=== PATIENT | female | born 1975 ===

== ENCOUNTER → 2020-05-08 11:03 | Outpatient (BNVA) | payer MEDICARE, MEDICAID, SELFPAY | PROVIDERS: PCP Internal Medicine; Visit Provider Physician Assistant ==

== ENCOUNTER → 2020-05-13 08:04 | Outpatient (BNVA) | payer MEDICARE, MEDICAID, SELFPAY | PROVIDERS: PCP Internal Medicine; Visit Provider Surgery | DX: E66.01 Morbid (severe) obesity due to excess calories (principal); I10 Essential (primary) hypertension; K21.9 Gastro-esophageal reflux disease without esophagitis | CPT/HCPCS: Q3014 ==

== ENCOUNTER 2020-05-15 09:27 | Outpatient (REF) | payer MEDICARE, MEDICAID, SELFPAY ==
--- NOTE | 2020-05-15 10:08 | ECG_ITS ---
Test Reason : MORBID OBESITY Blood Pressure : / mmHG Vent. Rate : 089 BPM Atrial Rate : 089 BPM P-R Int : 190 ms QRS Dur : 084 ms QT Int : 364 ms P-R-T Axes : 038 009 047 degrees QTc Int : 442 ms Normal sinus rhythm Minimal voltage criteria for LVH Borderline ECG No previous ECGs available Referred By: Zi Fountain Electronically Signed By:Cruzito Martin
[2020-05-15 10:18] LABS: MANUAL DIFF FLAG NO
--- NOTE | 2020-05-15 10:21 | XR_ITS ---
EXAMINATION: XR CHEST CLINICAL INFORMATION: E66.01. Bariatric service evaluation. COMPARISON: None TECHNIQUE: 2 views of the chest were obtained. FINDINGS: The lungs are clear. The vascularity is normal. There is no airspace consolidation or effusion. The heart is normal in size. The hilar and mediastinal contours are normal. There is mild dextrocurvature midthoracic spine. XR/XR chest 2V IMPRESSION: Unremarkable examination.
[2020-05-15 10:23] LABS: Basophils Absolute Auto 0.1 X10*3/uL (0.0-0.2); Basophils Percent Auto 0.5 % (0-2); Eosinophils Absolute Auto 0.4 X10*3/uL (0.0-0.4); Eosinophils Percent Auto 3.3 % (0-4); Hematocrit 40.3 % (37-47); Hemoglobin 13.3 g/dl (12.0-16.0); Imm Gran Abs Auto 0.06 X10*3/uL (0.00-0.03); Imm Gran Pct Auto 0.5 % (0.0-0.4); Lymphocytes Absolute Auto 3.5 X10*3/uL (1.2-4.9); Lymphocytes Percent Auto 31.7 % (20-40); Mean Corpuscular Hemoglobin 29.3 pg (27.0-33.0); Mean Corpuscular Volume 88.8 fL (80-98); Mean Platelet Volume 10.2 fL (9.4-12.3); Monocytes Absolute Auto 0.7 X10*3/uL (0.1-1.2); Monocytes Percent Auto 6.6 % (2-11); NRBC Pct Auto 0.4 /100WBC (0.0-0.2); Neutrophils Absolute Auto 6.4 X10*3/uL (2.0-8.3); Neutrophils Percent Auto 57.4 % (45-73); Platelet Count 215 X10*3/uL (160-400); Red Blood Count 4.54 X10*6/uL (4.20-5.50); Red Cell Distribution Width 14.3 % (11.0-16.0); White Blood Count 11.1 X10*3/uL (4.8-10.8)
[2020-05-15 10:34] LABS: Estimated Average Glucose 114 mg/dL; Hemoglobin A1c % 5.6 %
[2020-05-15 10:49] LABS: Alanine Aminotransferase 29 U/L (0-31); Albumin Level 4.1 g/dL (3.5-5.0); Alkaline Phosphatase 119 U/L (39-117); Anion Gap 13 (12-20); Aspartate Amino Transferase 26 U/L (5-31); Bilirubin Total 1.2 mg/dL (0.0-1.0); Blood Urea Nitrogen 12 mg/dL (9-16); C Reactive Protein 0.59 mg/dL (< or = 0.50); Calcium 9.1 mg/dL (8.4-10.2); Carbon Dioxide 28 mmol/L (22-29); Chloride 102 mmol/L (96-108); Cholesterol 191 mg/dL; Estimated Glomerular Filt Rate > 60; Glucose Random 112 mg/dL (60-115); HDL Cholesterol 50 mg/dL; LDL Cholesterol Calculated 109 mg/dl; Potassium 4.1 mmol/l (3.3-5.1); Sodium 139 mmol/L (135-145); Total Protein 7.4 g/dL (6.5-8.0); Triglycerides 163 mg/dL
[2020-05-15 11:11] LABS: Ferritin 11 ng/mL (10-250); TSH reflex Free T4 1.78 mIU/mL (0.32-4.0); Vitamin D 25-OH Total 18.5 ng/mL (>30)
[2020-05-15 11:40] LABS: Folate 7.7 ng/mL (> or = 4.0); Vitamin B12 292 pg/mL (200-900)
[2020-05-16 10:27] LABS: Insulin Level Total 43.9 uIU/mL
[2020-05-16 16:22] LABS: Calcium (PTHI) 9.2 mg/dL (8.6-10.2); PTHI 61 pg/mL (14-64)
[2020-05-18 03:58] LABS: Zinc 63 mcg/dL (60-130)
[2020-05-20 12:56] LABS: Vitamin B1 6 nmol/L (8-30)
[2020-05-22 14:17] LABS: Vitamin A 36 mcg/dL (38-98)
== END 2020-05-15 09:28 | disposition home or self-care (01) ==
LOC: HO.LAB 09:27
PROVIDERS: PCP Internal Medicine; Visit Provider Surgery
DX: E66.01 Morbid (severe) obesity due to excess calories (principal); I10 Essential (primary) hypertension; K21.9 Gastro-esophageal reflux disease without esophagitis
CPT/HCPCS: 36415; 71046; 80053; 80061; 82306; 82607; 82728; 82746; 83036; 83525; 83970; 84425; 84443; 84590; 84630; 85025; 86140; 93005

== ENCOUNTER 2020-05-23 08:44 | Outpatient (REF) | payer MEDICARE, MEDICAID, SELFPAY ==
--- NOTE | 2020-05-23 08:48 | FL_ITS ---
EXAMINATION: XR GI SERIES CLINICAL INFORMATION: Morbid obesity due to excess calories COMPARISON: None TECHNIQUE: Fluoroscopic assessment of the upper GI tract was performed in various upright and supine/prone obliquities utilizing thin and thick high density barium contrast material and effervescent granules. FINDINGS: Normal oral bolus control and transfer. Normal posterior tilt of the epiglottis with elevation of the hyoid. Mild degenerative changes of the cervical spine with small osteophytes noted. The esophagus was normal in course, caliber, and contour. There was normal distensibility with no fixed segment of narrowing. No focal mucosal abnormality was identified. No significant esophageal dysmotility was observed. Contrast passed freely across the gastroesophageal junction into the stomach. No significant hiatal hernia. There was normal distensibility of the stomach with no focal abnormality identified. There was prompt gastric emptying into the duodenum which demonstrated a normal appearance. Mild gastroesophageal reflux was observed. FLUOROSCOPY TIME: 2 minutes DOSE AREA PRODUCT: 36.207 Gy-cm2 (coyle-centimeter squared) FL/FL upper GI series IMPRESSION: Mild gastroesophageal reflux. Otherwise unremarkable upper GI examination.
--- NOTE | 2020-05-23 08:48 | US_ITS ---
EXAMINATION: US COMPLETE ABDOMEN WITH LIVER ELASTOGRAPHY CLINICAL INFORMATION: Morbid obesity due to excess calories COMPARISON: None. TECHNIQUE: Real-time imaging of the abdominal viscera. Noninvasive ultrasound liver fibrosis assessment is performed using Paty ElastPQ point quantification shear wave elastography (pSWE) with a 5 MHz transducer. Multiple elastography samples are obtained. FINDINGS: PANCREAS: The visualized pancreatic head and body are normal in appearance. The remainder of the pancreas is obscured from visualization by the overlying bowel gas. ABDOMINAL AORTA: The proximal, middle, and distal aortic segments are normal in caliber. INFERIOR VENA CAVA: Visualized portions are normal. LIVER: The liver demonstrates normal size and Contour with increased echogenicity. No focal lesion or intrahepatic biliary duct dilatation. The right lobe measures 16.9 cm in length. The left lobe measures 9.2 cm in length. The portal vein is patent. Shear wave elastography provides a median stiffness of 1.54 m/s (reference: normal median stiffness is 0.81 - 1.22 m/s). The IQR/median stiffness to assess sampling precision is 0.21 (reference: optimal IQR/median stiffness is under 0.3). GALLBLADDER: Cholecystectomy. COMMON BILE DUCT: Normal in caliber measuring 0.6 cm in diameter. RIGHT KIDNEY: Normal. No hydronephrosis. No renal calculi or focal parenchymal lesions. The kidney measures 13.6 cm in maximum dimension. LEFT KIDNEY: Normal. No hydronephrosis. No renal calculi or focal parenchymal lesions. The kidney measures 10.1 cm in maximum dimension. SPLEEN: Normal. The spleen measures 9.9 cm in maximum dimension. FREE FLUID: None. US/US abdomen comp w elastography IMPRESSION: 1. Hepatic steatosis. 2. Elastography: Liver elastography measurements are consistent with a moderate risk for clinically significant liver fibrosis (METAVIR Stage F2-F3).
== END 2020-05-23 08:45 | disposition home or self-care (01) ==
LOC: HO.US 08:44
PROVIDERS: PCP Internal Medicine; Visit Provider Surgery
DX: Z01.818 Encounter for other preprocedural examination (principal); E66.01 Morbid (severe) obesity due to excess calories; K21.9 Gastro-esophageal reflux disease without esophagitis; I10 Essential (primary) hypertension
CPT/HCPCS: 74240; 76705; 76981

== ENCOUNTER → 2020-05-24 14:41 | Outpatient (REF) | payer MEDICARE, MEDICAID, SELFPAY ==
--- NOTE | 2020-05-24 14:45 | CA_ITS ---
Transthoracic Echocardiogram Patient (Last, First, Middle): Conchita Chaney, Gender: Female Date of : 1975 Age: 44 Procedure Date: 05/24/2020 Procedure Type: Transthoracic Echocardiogram Location: OP Height: 162.56 cm Weight: 118.84 kg BSA: 2.19 m2 Heart Rate: bpm BP: 134 / 80 mmHg Opticianry Teacher: Referring MD: Zi Fountain MD Symptoms: I10 HTN, SON/MCDERMOTT, PREOP WEIGHTLOSS Study Quality: Fair ECG Rhythm: Sinus Conclusions: - The left ventricular systolic function is normal. The visually estimated ejection fraction is between 60-65%. - No obvious valvular pathology seen on this study. Findings Left Ventricle Normal left ventricular cavity size. There is mildly increased left ventricular wall thickness. The left ventricular systolic function is normal. The visually estimated ejection fraction is between 60-65%. There is no evidence of regional wall motion abnormalities. Diastolic function is normal for age. Right Ventricle Normal right ventricular cavity size and systolic function. Atria Both atria are normal in size. Aortic Valve There is a normal trileaflet aortic valve. There is mild calcification of the aortic valve. There is no aortic valve stenosis. There is no aortic valve regurgitation. Mitral Valve The mitral valve appears normal. There is no mitral valve regurgitation. There is no mitral valve stenosis. Pulmonic Valve The pulmonic valve was not well visualized. Tricuspid Valve Normal tricuspid valve structure. There is no tricuspid valve regurgitation. The pulmonary artery systolic pressure is normal. Great Vessels The aortic annulus, sinuses of valsalva, and asc aorta are normal in size. Venous The inferior vena cava is normal in size and collapses greater than 50% with inspiration. Pericardium/Pleural There is no evidence of pericardial effusion. Prior Study Comparison No prior study available for comparison. Recommendations, Care & Conclusions No obvious valvular pathology seen on this study. Measurements 2D Linear Measurements IVSd: 1.24 0.6-0.9/0.6-1.0 cm LVIDd: 4.00 3.9-5.3/4.2-5.9 cm LVIDd Index: 1.83 2.4-3.2/2.2-3.1 cm/m2 LVIDs: 2.73 2.0-3.6 cm LVPWd: 1.28 0.7-1.1 cm Ao Root: 2.90 2.1-3.5 cm LA Diam: 3.90 2.7-3.8/3.0-4.0 cm LAIDs Index: 1.78 1.5-2.3 cm/m2 LV Mass: 221.69 67-162/88-224 g LV Mass Index: 101.23 43-95/49-115 g/m2 LVOT Diam: 2.30 3.0+(-)1.3 cm 2D Systolic Function EF 4C: 57.70 >55% EF 2C: 64.60 >55% EF BiP: 61.50 >55% Mitral Valve MV Pk E: 0.80 MV PK A: 0.82 MV Decel Time: 148.00 E/A: 1.00 E'Lateral: 13.70 E'Medial: 8.90 E/E' Med: 9.00 E/E' Lat: 5.80 PHT: 43.00 MVA PHT: 5.12 Decel [place]: 5.41 Aortic Valve AoV Pk Prudencio: 1.61 AoV Mn Prudencio: 1.19 AoV VTI: 0.35 AoV Pk Grad: 10.00 Aov Mn Grad: 6.00 LUIS ENRIQUE Cont.VTI: 2.34 LVOT LVOT Pk Prudencio: 0.93 LVOT Mn Prudencio: 0.61 LVOT VTI: 0.20 LVOT Pk Grad: 3.00 LVOT Mn Grad: 2.00 LVOT Diam: 2.30 LVOT Area: 4.15 Diastolic Function MV Pk E: 0.80 MV Pk A: 0.82 E/A: 1.00 E'Medial: 8.90 E/E' Med: 9.00 E' Laterial: 13.70 E/E' Lat: 5.80 Tricuspid Valve TR Pk Prudencio: 1.61 TR Pk Grad: 10.00 RA Press: 3.00 RVSP: 13.00 Great Vessels Aorta Ao Root-2D: 2.90 2.0-3.7 cm Ao Asc: 2.90 2.1-3.4 cm Pulmonary Valve PV Pk Prudencio: 1.22 Peak PV Grad: 6.00 Updated in Other Vendor System with Status of Final Domingo Moeller MD electronically signed on 05/25/2020 3:26:35 PM with status of Final
== END ==
LOC: HO.CARD 14:41
PROVIDERS: Visit Provider Surgery
DX: Z01.818 Encounter for other preprocedural examination (principal); R06.02 Shortness of breath; I10 Essential (primary) hypertension
CPT/HCPCS: 93306

== ENCOUNTER → 2020-05-27 08:07 | Outpatient (REF) | payer MEDICARE, MEDICAID, SELFPAY ==
--- NOTE | 2020-05-27 08:09 | CA_ITS ---
Acquisition Time: 2020-05-27 08:30:41 Total Exercise Time: 00:07:24 Test Indications: Abnormal ECG Medications: AMLODIPINE VIT D OMEPRAZOLE Protocol: MOIRA Max HR: 171 BPM 97% of Pred: 175 BPM Max BP: 150/080 mmHG Max Work Load: 9.3 METS Exercise stress test using Moira protocol, total of 7 min 24 sec. METS 9.3. TAPHR up to 97 %. Pt tolerated well, denies any anginal sx. EKG with no arrhythmias, no ischemic changes seen during exercise or in recovery period. Normotensive response to exercise. Test reviewed with Dr. Moeller Referred By: Zi Fountain Overread By: Raul Jonas
== END ==
LOC: HO.CARD 08:07
PROVIDERS: Visit Provider Surgery
DX: Z01.818 Encounter for other preprocedural examination (principal); R06.02 Shortness of breath; I10 Essential (primary) hypertension; R94.31 Abnormal electrocardiogram [ECG] [EKG]
CPT/HCPCS: 93017

== ENCOUNTER 2020-05-28 08:06 | Outpatient (REF) | payer MEDICARE, MEDICAID, SELFPAY ==
[2020-05-30 12:03] LABS: H Pylori Breath Test NOT DETECTED (NOT DETECTED)
== END 2020-05-28 08:07 | disposition home or self-care (01) ==
LOC: HO.LNP 08:06
PROVIDERS: PCP Internal Medicine; Visit Provider Physician Assistant
DX: Z11.0 Encounter for screening for intestinal infectious diseases (principal)
CPT/HCPCS: 83013; 99211

== ENCOUNTER → 2020-06-10 11:40 | Outpatient (BNVA) | payer MEDICARE, MEDICAID, SELFPAY | PROVIDERS: PCP Internal Medicine; Visit Provider Surgery | DX: E66.01 Morbid (severe) obesity due to excess calories (principal) | CPT/HCPCS: 99212; Q3014 ==

== ENCOUNTER → 2020-06-12 08:18 | Outpatient (BNVA) | payer MEDICARE, MEDICAID, SELFPAY | PROVIDERS: PCP Internal Medicine; Visit Provider Dietitian, Registered ==

== ENCOUNTER → 2020-07-01 08:41 | Outpatient (BNVA) | payer MEDICARE, MEDICAID, SELFPAY | PROVIDERS: PCP Internal Medicine; Visit Provider Surgery | DX: E66.01 Morbid (severe) obesity due to excess calories (principal); Z68.41 Body mass index [BMI] 40.0-44.9, adult; Z71.3 Dietary counseling and surveillance | CPT/HCPCS: Q3014 ==

== ENCOUNTER → 2020-07-03 09:56 | Outpatient (BNVA) | payer MEDICARE, MEDICAID, SELFPAY | PROVIDERS: PCP Internal Medicine; Visit Provider Physician Assistant ==

== ENCOUNTER 2020-07-26 09:13 | Outpatient (REF) | payer MEDICARE, MEDICAID, SELFPAY ==
[2020-07-26 09:43] LABS: Carbon Monoxide 1.7
[2020-08-02 22:28] LABS: Cotinine, U 11 ng/mL; Nicotine, U <2 ng/mL
== END 2020-07-26 09:14 | disposition home or self-care (01) ==
LOC: HO.LAB 09:13
PROVIDERS: PCP Internal Medicine; Visit Provider Surgery
DX: F17.200 Nicotine dependence, unspecified, uncomplicated (principal)
CPT/HCPCS: 80323

== ENCOUNTER → 2020-08-12 08:12 | Outpatient (BNVA) | payer MEDICARE, MEDICAID, SELFPAY | PROVIDERS: PCP Internal Medicine; Visit Provider Surgery | DX: K21.9 Gastro-esophageal reflux disease without esophagitis (principal); I10 Essential (primary) hypertension; E66.01 Morbid (severe) obesity due to excess calories; Z68.38 Body mass index [BMI] 38.0-38.9, adult; Z71.3 Dietary counseling and surveillance | CPT/HCPCS: Q3014 ==

== ENCOUNTER → 2020-08-16 12:58 | Outpatient (BNVA) | payer MEDICARE, MEDICAID, SELFPAY | PROVIDERS: PCP Internal Medicine; Visit Provider Physician Assistant ==

== ENCOUNTER 2020-08-20 06:09 | Inpatient (IN) | payer MEDICARE, MEDICAID, SELFPAY ==
[2020-08-13 10:17] VITALS: BMI 38.2
[2020-08-15 10:29] LABS: MANUAL DIFF FLAG NO
[2020-08-15 10:39] LABS: INTERNATIONAL NORM RATIO 1.1 (0.9-1.1); Prothrombin Time 13.1 SEC (10.8-13.0)
[2020-08-15 10:41] LABS: Basophils Percent Auto 0.4 % (0-2); Eosinophils Absolute Auto 0.3 X10*3/uL (0.0-0.4); Eosinophils Percent Auto 3.1 % (0-4); Hematocrit 37.5 % (37-47); Hemoglobin 12.2 g/dl (12.0-16.0); Imm Gran Abs Auto 0.04 X10*3/uL (0.00-0.03); Imm Gran Pct Auto 0.5 % (0.0-0.4); Lymphocytes Percent Auto 36.6 % (20-40); Mean Corpuscular HGB Conc 32.5 g/dl (31.0-35.0); Mean Corpuscular Hemoglobin 28.9 pg (27.0-33.0); Mean Corpuscular Volume 88.9 fL (80-98); Mean Platelet Volume 12.1 fL (9.4-12.3); Monocytes Absolute Auto 0.7 X10*3/uL (0.1-1.2); Monocytes Percent Auto 9.1 % (2-11); NRBC Pct Auto 0.2 /100WBC (0.0-0.2); Neutrophils Absolute Auto 4.1 X10*3/uL (2.0-8.3); Neutrophils Percent Auto 50.3 % (45-73); Platelet Count 177 X10*3/uL (160-400); Red Blood Count 4.22 X10*6/uL (4.20-5.50); Red Cell Distribution Width 14.7 % (11.0-16.0); White Blood Count 8.2 X10*3/uL (4.8-10.8)
[2020-08-15 10:42] LABS: Partial Thromboplastin Time 28.1 SEC (24.1-38.0)
[2020-08-15 10:55] LABS: Alanine Aminotransferase 42 U/L (0-31); Albumin Level 4.1 g/dL (3.5-5.0); Alkaline Phosphatase 88 U/L (39-117); Anion Gap 15 (12-20); Aspartate Amino Transferase 31 U/L (5-31); Bilirubin Total 1.3 mg/dL (0.0-1.0); Blood Urea Nitrogen 10 mg/dL (9-16); C Reactive Protein 0.35 mg/dL (< or = 0.50); Calcium 9.1 mg/dL (8.4-10.2); Carbon Dioxide 24 mmol/L (22-29); Chloride 104 mmol/L (96-108); Cholesterol 148 mg/dL; Creatinine Clr Calc Pharmacy 108.1; Estimated Glomerular Filt Rate > 60; Glucose Random 87 mg/dL (60-115); HDL Cholesterol 38 mg/dL; LDL Cholesterol Calculated 92 mg/dl; Potassium 3.9 mmol/L (3.3-5.1); Sodium 139 mmol/L (135-145); Triglycerides 92 mg/dL
[2020-08-15 11:17] LABS: TSH reflex Free T4 0.74 uIU/mL (0.32-4.0)
[2020-08-15 11:34] LABS: Estimated Average Glucose 97 mg/dL
[2020-08-16 10:17] LABS: Insulin Level Total 9.7 uIU/mL
--- NOTE | 2020-08-19 09:36 | HO.ANESPROP2 ---
Documented by User: Kelle Zuñiga 08/19/20 09:40 HPI - Anesthesia Eval Consult details Narrative: 44yo F for Gastrectomy Sleeve PMFSH Active Problems Active Problems: All Active Problems (Updated 08/13/20 @ 10:08 by Maria E Avelar) Abnormal EKG (Acute) Vitamin B1 deficiency (Acute) Vitamin D deficiency (Acute) Vitamin B12 deficiency (Acute) Vitamin A deficiency (Acute) Depressive disorder due to separate medical condition (Acute) Multiple sclerosis (Acute) GERD (gastroesophageal reflux disease) (Acute) Hypertension (Acute) Morbid obesity (Acute) Past Medical History Medical History COVID-19 vaccine series completed GERD (gastroesophageal reflux disease) Hypertension Morbid obesity Multiple sclerosis Numbness Pain Smoking Family History Family History Mother No problems noted. Father No problems noted. Sister No problems noted. Son No problems noted. Daughter No problems noted. Surgical History Surgical History Hx of section Hx of cholecystectomy Social History Social History Are you a primary anesthesiologist and critical care to a significant other at home: Yes (children) Do you presently have visiting nurse or other home services: No Alcohol intake: current Alcohol intake frequency: a few times a month Smoking Status: Former smoker Cigarettes Per Day: 0 (quit 07/23/2020) Years Smoked: 30 Smoked in Last 30 Days: Yes Smoking Quit Date: 07/23/2020 Use of substances other than those prescribed or required for medical reasons: No Have you been hit, kicked, punched, or otherwise hurt by someone within the past year? If so, by whom?: No Are you DNR?: No Advance Directives: No Advance Directives Information Provided: No Advance Directives on File: No Patient : No FDLMP: 08/11/2020 : No Poor oral hygiene: No Meds Allergies Allergy/AdvReac Type Severity Reaction Status Date / Time No Known Allergies Allergy Verified 08/20/20 06:27 Home Medications Medication Instructions Recorded Confirmed Last Taken Type amlodipine 5 mg tablet 5 mg PO DAILY 05/13/20 08/13/20 Unknown History natalizumab 300 mg/15 mL 300 mg IV Q6W 05/13/20 08/13/20 Unknown History intravenous solution omeprazole 20 mg tablet,delayed 20 mg PO DAILY 05/13/20 08/20/20 Unknown History release vitamin A 2,400 mcg capsule 16,000 unit PO DAILY cap 05/30/20 08/20/20 Unknown History venlafaxine 1 cap PO BEDTIME 08/13/20 08/13/20 Unknown History cholecalciferol (vitamin D3) 1 cap PO DAILY 08/20/20 08/20/20 Unknown History ondansetron HCl [Zofran] 4 mg PO Q12H PRN 08/20/20 08/20/20 Unknown History Exam Exam Date and Time: August 19, 2020 0936 Height,Weight and Vital Signs: Height 5 ft 4 in Weight 101.151 kg Pertinent Lab Results Pertinent Lab Results: Laboratory Tests 08/15/20 08/15/20 08/15/20 09:55 09:55 09:55 WBC 8.2 RBC 4.22 Hgb 12.2 Hct 37.5 MCV 88.9 MCH 28.9 MCHC 32.5 RDW 14.7 Plt Count 177 MPV 12.1 Immature Gran % (Auto) 0.5 H Neut % (Auto) 50.3 Lymph % (Auto) 36.6 Pratt % (Auto) 9.1 Eos % (Auto) 3.1 Baso % (Auto) 0.4 Lymph # (Auto) 3.0 Pratt # (Auto) 0.7 Eos # (Auto) 0.3 Baso # (Auto) 0.0 Abs Immat Gran (auto) 0.04 H Absolute Neuts (auto) 4.1 Absolute Nucleated RBC 0.020 H Nucleated RBC % (auto) 0.2 PT 13.1 H INR 1.1 APTT 28.1 Sodium 139 Potassium 3.9 Chloride 104 Carbon Dioxide 24 Anion Gap 15 BUN 10 Creatinine 0.76 Estim Creat Clear Calc 108.1 Estimated GFR > 60 Random Glucose 87 Estimat Average Glucose Hemoglobin A1c % Total Insulin Calcium 9.1 Total Bilirubin 1.3 H AST 31 ALT 42 H Alkaline Phosphatase 88 D C-Reactive Protein 0.35 Total Protein 7.0 Albumin 4.1 Triglycerides 92 Cholesterol 148 D LDL Cholesterol, Calc 92 HDL Cholesterol 38 D TSH 0.74 Blood Type Antibody Screen Antibody Identification 08/15/20 08/15/20 08/15/20 09:55 09:55 09:55 WBC RBC Hgb Hct MCV MCH MCHC RDW Plt Count MPV Immature Gran % (Auto) Neut % (Auto) Lymph % (Auto) Pratt % (Auto) Eos % (Auto) Baso % (Auto) Lymph # (Auto) Pratt # (Auto) Eos # (Auto) Baso # (Auto) Abs Immat Gran (auto) Absolute Neuts (auto) Absolute Nucleated RBC Nucleated RBC % (auto) PT INR APTT Sodium Potassium Chloride Carbon Dioxide Anion Gap BUN Creatinine Estim Creat Clear Calc Estimated GFR Random Glucose Estimat Average Glucose 97 Hemoglobin A1c % 5.0 Total Insulin 9.7 Calcium Total Bilirubin AST ALT Alkaline Phosphatase C-Reactive Protein Total Protein Albumin Triglycerides Cholesterol LDL Cholesterol, Calc HDL Cholesterol TSH Blood Type A Positive Antibody Screen POSITIVE Antibody Identification Anti-M Narrative Narrative: EKG 04/2020 Vent. Rate : 089 BPM Atrial Rate : 089 BPM P-R Int : 190 ms QRS Dur : 084 ms QT Int : 364 ms P-R-T Axes : 038 009 047 degrees QTc Int : 442 ms Normal sinus rhythm Minimal voltage criteria for LVH Borderline ECG No previous ECGs available ECHO 05/2020 Conclusions: - The left ventricular systolic function is normal. The visually estimated ejection fraction is between 60-65%. - No obvious valvular pathology seen on this study. Exercise Stress 05/2020 Exercise stress test using Sonny protocol, total of 7 min 24 sec. METS 9.3. TAPHR up to 97 %. Pt tolerated well, denies any anginal sx. EKG with no arrhythmias, no ischemic changes seen during exercise or in recovery period. Normotensive response to exercise. Test reviewed with Dr. Moeller Assessment and Plan Assessment Anesthesia Assessment: Chart Reviewed Documented by User: Mikael Stallworth 08/20/20 07:23 REPLACED BY [facility] Past Medical History Medical History COVID-19 vaccine series completed GERD (gastroesophageal reflux disease) Hypertension Morbid obesity Multiple sclerosis Numbness Pain Smoking Family History Family History Mother No problems noted. Father No problems noted. Sister No problems noted. Son No problems noted. Daughter No problems noted. Surgical History Surgical History Hx of section Hx of cholecystectomy Social History Social History Are you a primary anesthesiologist and critical care to a significant other at home: Yes (children) Do you presently have visiting nurse or other home services: No Alcohol intake: current Alcohol intake frequency: a few times a month Smoking Status: Former smoker Cigarettes Per Day: 0 (quit 07/23/2020) Years Smoked: 30 Smoked in Last 30 Days: Yes Smoking Quit Date: 07/23/2020 Use of substances other than those prescribed or required for medical reasons: No Have you been hit, kicked, punched, or otherwise hurt by someone within the past year? If so, by whom?: No Are you DNR?: No Advance Directives: No Advance Directives Information Provided: No Advance Directives on File: No Patient : No FDLMP: 08/11/2020 : No Poor oral hygiene: No Meds Allergies Allergy/AdvReac Type Severity Reaction Status Date / Time No Known Allergies Allergy Verified 08/20/20 06:27 Home Medications Medication Instructions Recorded Confirmed Last Taken Type amlodipine 5 mg tablet 5 mg PO DAILY 05/13/20 08/13/20 Unknown History natalizumab 300 mg/15 mL 300 mg IV Q6W 05/13/20 08/13/20 Unknown History intravenous solution omeprazole 20 mg tablet,delayed 20 mg PO DAILY 05/13/20 08/20/20 Unknown History release vitamin A 2,400 mcg capsule 16,000 unit PO DAILY cap 05/30/20 08/20/20 Unknown History venlafaxine 1 cap PO BEDTIME 08/13/20 08/13/20 Unknown History cholecalciferol (vitamin D3) 1 cap PO DAILY 08/20/20 08/20/20 Unknown History ondansetron HCl [Zofran] 4 mg PO Q12H PRN 08/20/20 08/20/20 Unknown History Exam Airway Mallampati Class: III TM Dist: >3cm Neck ROM: Full Loose/Missing/Broken Teeth: No Heart: rrr+[id number] Lungs: cta b/l Assessment and Plan Assessment Anesthesia Assessment: Anesthesia Plan Discussed, PAT Visit and Chart Reviewed Final Anesthetic Review NPO: Yes ASA Class: II Final Preanesthetic Review: No Changes in Pt Med Stat, Meds/Allgs Chart Reviewed, Consent Obtained/Reviewed and Anes Risks/Benef Reviewed Patient Risk: Low Procedure Risk: Low Assessment/Block/Sedation in SS: Assess/Block/Sedation-SS Anesthetic Plan Anesthetic Plan: GA and Agree w/ Assess. and Plan Disposition: Standard PACU
--- NOTE | 2020-08-19 17:43 | MHC.SHP ---
Pre-Procedural Eval Section A The patient is an INPATIENT: Yes The History & Physical has been completed within 30 days and I have reviewed it.: No Section B Chief Complaint: obesity Details of Present Illness: obesity Relevant Family History (Specify if Yes): No Relevant Social History: None Present Medications: see Short Stay Collaborative assessment Medical History: No relevant PMH History of Previous Operations: No relevant previous surgery Allergies: Allergies Allergy/AdvReac Type Severity Reaction Status Date / Time No Known Allergies Allergy Verified 08/13/20 10:11 Review of Systems Sugical H&P ROS: Negative: Constitution, Cardiovascular, Respiratory, Neurological, Psychiatric, Hem-Onc, Allergic/Immunologic, Gastrointestinal, Genitourinary, Musculoskeletal, Integumentary, Endocrine and Eyes/Ears/Nose/Throat Exam Surgical H&P Exam: Normal: HEENT, Normal: Heart, Normal: Lungs, Normal: Extremities, Normal: Abdomen, Normal: Skin and Normal: Neurological Plan Diagnosis/Plan: Unchanged I have reviewed the history and physical and performed a pertinent physical examination on my patient. No changes have occurred unless specified.
[2020-08-20] VITALS (20 sets, daily range): BP systolic 121–181; BP diastolic 64–99; PULSE 70–92; RESP 14–20; TEMP 36.2–36.9; O2SAT 96–100
[2020-08-20 06:31] LABS: UPreg QC Valid YES; Urine Pregnancy NEGATIVE (NEGATIVE)
[2020-08-20 07:00] LABS: COVID-19 Test Negative (Negative)
[2020-08-20] MEDS: Lactated Ringers 1,000 ML 999 ML IV (07:11)
[2020-08-20] MEDS: Lactated Ringers 1,000 ML 100 ML IVCONT (07:12)
--- NOTE | 2020-08-20 10:40 | P.DS_ITS ---
DS: Providers Provider Date of Service: 08/21/20 Date of admission: 08/20/20 06:09 Primary care physician: Yun River MD DS: Medications Discharge Medications Home Medications: Home Medications Medication Instructions Recorded Confirmed amlodipine 5 mg tablet 5 mg PO DAILY 05/13/20 08/13/20 natalizumab 300 mg/15 mL 300 mg IV Q6W 05/13/20 08/13/20 intravenous solution omeprazole 20 mg tablet,delayed 20 mg PO DAILY 05/13/20 08/20/20 release vitamin A 2,400 mcg capsule 16,000 unit PO DAILY cap 05/30/20 08/20/20 venlafaxine 1 cap PO BEDTIME 08/13/20 08/13/20 cholecalciferol (vitamin D3) 1 cap PO DAILY 08/20/20 08/20/20 ondansetron HCl [Zofran] 4 mg PO Q12H PRN 08/20/20 08/20/20 Previous Rx's Medication Instructions Recorded mecobalamin (vitamin B12) 1,000 1,000 mcg SUBLINGUAL DAILY #30 tab 05/20/20 mcg disintegrating tablet,sublingual thiamine HCl (vitamin B1) 100 mg 100 mg PO DAILY #30 tab 05/20/20 tablet pantoprazole 40 mg tablet,delayed 40 mg PO DAILY #30 tab 08/12/20 release sucralfate 100 mg/mL oral 10 ml PO BID #400 ml 08/12/20 suspension DS: Summary Time Spent with Patient Time attestation: ADMITTING DIAGNOSIS: morbid obesity, HTN, GERD, MS, paraesophageal hernia DISCHARGE DIAGNOSIS: same, s/p laparoscopic sleeve gastrectomy and repair diaphragmatic hernia PAST SURGICAL HISTORY: section, lap cholecystectomy PROCEDURE: upper endoscopy, laparoscopic sleeve gastrectomy and repair of diaphragmatic hernia hernia DISCHARGE SUMMARY: History of Present Illness: The patient is a 44 year-old woman with a BMI of 44.7 kg/m2 and associated co- morbidities as described above. The patient had extensive work-up,lost 39.3 lbs preoperatively and was electively scheduled for laparoscopic, possible open sleeve gastrectomy and gastropexy. Risks and complications of the surgery were discussed with the patient in advance, particularly the possibility of , pulmonary embolism, anastomotic leak, bleeding, bowel injury, GERD, cardiac, renal or pulmonary complications. The patient understood all the risks and was in agreement with the surgical plan. Hospital Course: The patient underwent an uneventful laparoscopic sleeve gastrectomy with gastropexy and repair of diaphragmatic hernia on the day of admission. Postoperatively, the patient was transferred to the surgical floor. The patient was on IV Acetaminophen and IV dilaudid for pain control. Patient was started on bariatric phase 1 diet POD #0. On postoperative day one, the patient was feeling well without nausea, vomiting, fevers, or tachycardia. The patient had some mild incisional pain. The abdomen was soft. On the morning of postoperative day one, the patient was continued on 1 ounce of water or ice every half hour. During the first day, the patient did fairly well, having some incisional pain, but able to ambulate adequately and to tolerate liquids well. Since the patient is doing well, we decided that the patient was ready to be discharged. The patient was given instructions to follow-up with me next week and to call my office for any fever over 101, persistent abdominal pain, nausea, vomiting, GERD, symptoms of DVT such as calf tenderness, or leg swelling, or pulmonary embolism such as chest pain or shortness of breath. The patient was also instructed to drink 40-60 ounces of liquids per day using the 1-ounce cups. The patient was given prescription for Tylenol for pain, Zofran prn for nausea, and pantoprazole and carafate. The patient was encouraged to ambulate and use the incentive spirometer. The patient was allowed to shower, but no baths, and encouraged to stay active at home. All of these instructions were given to the patient personally. All questions were answered and the patient understood all instructions, the instructions were also given to the patient in print. Total time spent providing and/or coordinating discharge services: Discharge coordination time: Less than 30 minutes Physical Exam Vital Signs: Vital Signs: Last Vital Signs Temp 98.1 F 08/20/20 06:16 Pulse 92 08/20/20 06:16 Resp 18 08/20/20 06:16 BP 142/67 H 08/20/20 06:16 Pulse Ox 97 08/20/20 06:16 Body Mass Index 38.2 DS: Data Data Completed and Pending Pending studies at discharge: Pending at discharge 08/20/20 09:10 Surgical [PTH] Routine Labs on day of discharge: Laboratory Results - last 24 hr 04/08/20/20 08/20/20 09:55 06:00 06:03 Urine Test NEGATIVE COVID-19 (RAMILA) Negative COVID-19 Clin Com See Note Blood Type A Positive Antibody Screen POSITIVE Antibody Identification Anti-M Crossmatch (AHG) See Detail Discharge Plan Discharge Anticipated Discharge Date/Time: 08/21/20 11:36 Patient Disposition: Home, Self-Care Discharge Diagnosis: s/p sleeve gastrectomy Referrals: Yun River MD [Primary Care Provider] - 1 Week Discharge Medications: Continued venlafaxine 150 mg capsule,extended release 24hr 1 cap PO BEDTIME RF: 0 ondansetron HCl [Zofran] 4 mg tablet 4 mg PO Q12H PRN (Reason: Nausea And Vomiting) RF: 0 amlodipine 5 mg tablet 5 mg PO DAILY RF: 0 Tysabri 300 mg/15 mL solution 300 mg IV Q6W RF: 0 pantoprazole 40 mg tablet,delayed release (DR/EC) 40 mg PO DAILY Qty: 30 RF: 2 sucralfate 100 mg/mL suspension 10 ml PO BID Qty: 400 RF: 2 Discontinued thiamine HCl (vitamin B1) 100 mg tablet 100 mg PO DAILY Qty: 30 RF: 2 mecobalamin (vitamin B12) 1,000 mcg tablet,disintegrating 1,000 mcg sublingual DAILY Qty: 30 RF: 2 vitamin A 8,000 unit capsule 16,000 unit PO DAILY RF: 0 cholecalciferol (vitamin D3) 125 mcg (5,000 unit) capsule 1 cap PO DAILY RF: 0 omeprazole 20 mg tablet,delayed release (DR/EC) 20 mg PO DAILY RF: 0 Discharge Orders: Discharge Order (Routine); Ordered 08/21/20 Ordered By: Zi Fountain Diet: other Activity on Discharge: No heavy lifting Stand Alone Forms: Patient Portal Discharge page Activity Restrictions/Additional Instructions: No tub baths, sex or returning to work until discussed at first post op appointment. No exercise, alcohol, tobacco or illegal drug use. Continue to use incentive spirometer hourly while awake. Walk in home for 5- 10 minutes every 2 hours during the first week. Continue phase 1 diet today and start phase 2 diet tomorrow morning. Follow all instructions in the bariatric handbook and call with any questions. Care Plan Goals: weight loss Health Concerns: morbid obesity Plan of Treatment: see discharge instructions Assessment: POD # 1 s/p sleeve gastrectomy, stable.
--- NOTE | 2020-08-20 10:40 | PM.OP ---
Brief Operative Note Date of Service: 08/20/20 Pre-op diagnosis: Morbid obesity with comorbidities (see below) Post-op diagnosis: same (& diaphragmatic hernia) Procedure: INITIAL PATIENT BMI ON PRESENTATION AT OUR OFFICE: 44.8 kg/m2 LAST BMI BEFORE SURGERY: 38.4 kg/m2 COMORBIDITIES: Hypertension, GERD, multiple sclerosis, liver fibrosis, liver steatosis The patient participated in an intensive weekly lifestyle intervention and exercise program during which the patient has lost between the initial office visit and the last preoperative visit 39.3 lbs, or 14.84% of initial actual body weight. The patient met the BMI-criteria for bariatric surgery based on the BMI on initial presentation. The patient should not be penalized for achieving such weight loss because it is not sustainable long-term without surgical intervention and it was achieved in preparation for bariatric surgery under my direction and based on my published research ([email or web address] and [email or web address]) that a 10% preoperative weight loss improves long-term weight loss after surgery and reduces perioperative complications. Insurance carriers such as [facility] have endorsed my recommendations and have included in their policies criteria to include a 10% preoperative weight loss requirement. PROCEDURE: Esophago-gastroscopy, laparoscopic repair of incarcerated diaphragmatic hernia, laparoscopic lysis of adhesions, laparoscopic sleeve gastrectomy and laparoscopic gastropexy INDICATIONS: This is a 44 year-old female who was electively scheduled for laparoscopic, possibly open sleeve gastrectomy. The risks and complications of the procedure were discussed with the patient in advance, particularly the possibility of ; pulmonary embolism; staple line leak; bleeding; GERD; cardiac, pulmonary, or renal complications; as well as long-term problems such as insufficient weight loss, vitamin deficiency, strictures, or ulcers. The patient understood all the risks, and was in agreement to proceed with surgery. DESCRIPTION OF PROCEDURE: After informed consent was obtained from the patient, the patient was given preoperative antibiotics, and was transferred to the operating room. After successful induction of general anesthesia, pneumatic compressive devices were placed on both lower extremities. An upper endoscopy was performed next. The oropharynx and esophagus appeared to be within normal limits. There was a diaphragmatic hernia present of moderate size consistent with the findings of the preoperative upper GI. The stomach was entered. Then after all fluid and air were suctioned and the stomach was fully decompressed, the scope was withdrawn and secured in the mid esophagus. The patient was then prepped and draped in the usual sterile manner, and abdominal access was established at the right upper quadrant with the Eleno technique. A 12 mm blunt port was inserted, and the abdomen was insufflated with CO2 to a pressure of 15 mmHg. Under direct visualization, additional ports were placed, specifically two 5 mm Versi-step ports to the left upper quadrant, and a 5 mm Versi-Step port to the right upper quadrant. 1% lidocained plan was used to infiltrate all port sites as well as all fascia defects. Following that, the patient was placed in a steep reverse Trendelenburg position. An additional 5 mm port was placed to the right flank for the Mediflex retractor that was used to retract the left lobe of the liver. The gastro-esophageal fat pad was opened with the ultrasonic device (Thunderbeat, Olympus) and the anterior esophagus and hiatus were exposed. The angle of His was opened with the ultrasonic device the fundus of the stomach from any diaphragmatic and splenic attachments. I then opened the gastrocolic ligament between the transverse colon and the greater curvature of the stomach with the ultrasonic device to enter the lesser sac and facilitate the ligation of the short gastric vessels. I started at a mid-point along the greater curvature and using the Thunderbeat, all short gastric vessels were divided all the way to the angle of His until the left gume was completely dissected at its entirety. I then divided the gastro-colic ligament distally to a distance of about 3-4 cm proximal to the esophagus. There were extensive congenital adhesions between the pancreas and posterior gastric wall. Those were lysed completely with the ultrasonic device. Adhesiolysis took approximately 45 min to complete. There was an obvious significant-sized hiatal hernia. I continued dissecting along the hiatus toward the left gume and the angle of His. I fully mobilized the fat pad that was incarcerated in the hernia. I then continued by dissecting even further into the posterior retro-esophageal space all the way to the angle of His. I continued to mobilize the esophagus into the mediastinum circumferentially. Both vagal nerves were seen and preserved. The right gume was also dissected free completely. At that point, I was able to have at least 3 to 5 cm of esophagus into the abdomen. After I completely mobilized the esophagus from both the left and right gume and I had a good mobilization of the esophagus circumferentially, I closed the hernia defect with four interrupted #0 Surgidac sutures using the Endo Stitch device, three of which were placed posterior and one anterior to the esophagus. The stomach was then divided transversely with one Endo LANG-45 purple load and five LANG-60 articulating orange loads using the AEON stapler and loads. Every effort was made that the gastric sleeve had a tubular shape and an even caliber throughout. Once the sleeve resection was completed, the staple line of the gastric sleeve was reinforced with Hemoclips. The resected stomach was retrieved without difficulty from the Eleno port. A gastropexy was then performed in order to prevent postoperative GERD and partial gastric volvulus. Several interrupted 2.0 Surgidac sutures were placed between the sleeve's staple line and the previously divided greater omentum and gastro-colic ligament using the Endo-Stitch device. An upper endoscopy was performed. There was no narrowing at the GE junction. The scope was easily advanced all the way to the pylorus which was clearly visualized. There was no narrowing anywhere and the sleeve's caliber was even throughout. The sleeve's staple line was inspected and there was no evidence of ischemia, bleeding or dehiscence. At that point the gastroscope was withdrawn from the patient?s mouth while we were decompressing the bowel and the stomach from any remaining air. I looked into the lesser sac to see how the sleeve was situating and it was situating well. There was no bleeding from the staple line, spleen, or short gastric vessels. The Mediflex retractor was removed, and the undersurface of the liver was inspected and there was no bleeding. The patient was placed in supine position. I closed the fascial defect of the 12 mm port site with a figure of eight #1 Polysorb suture. Then 100 cc 0.25 % Marcaine plain with 10 mg of Dexamethasone were used to infiltrate the fascial closure as well as all skin incisions. At this point, the abdomen was deflated, all ports were removed under direct vision, and no bleeding was noted from any of the port sites. The skin incisions were irrigated with saline and were closed with 4-0 absorbable monofilament sutures. Steri-Strips and OpSites were used to cover all incisions. The patient was extubated and was transferred in stable condition to the recovery room for further care. I was present and performed all vieira parts of the procedure. Jazmine Barreto was the assistant project engineer. There were no residents to assist with this case. Osvaldo Fountain MD, PhD, FACS Surgeon: Zi Fountain MD Anesthesia: GETA, local and other (TAP block) Was an Rat Breeder used for this Procedure?: Yes Rat Breeder: Marva Barreto Estimated blood loss (mL): 10 IV fluids (mL): 2,500 Urine output (mL): 0 (No Gomez to record) Pathology: other (Stomach) Condition: stable Disposition: PACU
[2020-08-20] MEDS: Famotidine/PF 20 MG/2 ML VIAL IVPUSH ×2 (10:44→21:14)
--- NOTE | 2020-08-20 10:47 | PM.PNGS ---
Subjective Subjective Date of Service: 08/21/20 Interval history: Patient has mild incisonal pain but was able to ambulate and use the incentive spirometer. Is tolerating phase 1 bariatric diet. Physical Exam Vital Signs: Vital Signs: Last Vital Signs Temp 98.1 F 08/20/20 06:16 Pulse 92 08/20/20 06:16 Resp 18 08/20/20 06:16 BP 142/67 H 08/20/20 06:16 Pulse Ox 97 08/20/20 06:16 Body Mass Index 38.2 GI: Inspection: Yes normal to inspection and Yes incision (clear, dry and intact) Extrem: Right lower extremity: normal to inspection (no calf tenderness) Left lower extremity: normal to inspection (no calf tenderness) Progress Note: A&P Assessment and plan (1) Morbid obesity: Status: Acute (2) Hypertension: Status: Acute (3) GERD (gastroesophageal reflux disease): Status: Acute (4) Multiple sclerosis: Problem details: Diagnosed ~1999 sees, Dr Rebeca Loza [facility] Neurology Status: Acute (5) Depressive disorder due to separate medical condition: Status: Acute (6) S/P laparoscopic sleeve gastrectomy: Status: Acute Assessment and Plan: 44 year old Female was admitted 08/20/2020 with morbid obesity and comorbidities. Problem 1: s/p laparoscopic sleeve gastrectomy, repair of incarcerated diaphragmatic hernia, gastropexy and lysis of adhesions Status: Doing well Plan: Check am labs, If OK, will begin phase 1 bariatric diet. (7) S/P repair of paraesophageal hernia: Status: Acute (8) Paraesophageal hernia: Status: Acute (9) Liver fibrosis: Status: Acute (10) Steatosis, liver: Status: Acute Fall Risk Details Current Medications: Current Medications Generic Name Dose Route Start Last Admin Trade Name Freq PRN Reason Stop Dose Admin Famotidine 20 mg 08/20/20 10:45 08/20/20 10:44 Famotidine/Pf 20 Mg/2 Ml Vial IVPUSH 20 mg BID TRAN Administration Fentanyl 50 mcg 08/20/20 07:19 Fentanyl Citrate/Pf 100 Mcg/2 Ml Vial IVPUSH Q5M PRN Pain, Moderate (Pain Scale 4-6 Hydromorphone HCl 0.5 mg 08/20/20 07:19 Hydromorphone Hcl 0.5 Mg/0.5 Ml Syringe IVPUSH Q5M PRN Pain, Severe (Pain Scale 7-10) Lactated Ringer's 1,000 mls @ 100 mls/hr 08/20/20 06:00 08/20/20 07:12 Lr IVCONT 100 mls/hr .Q10H TRAN Administration Promethazine HCl 12.5 mg/ 50.5 mls @ 202 mls/hr 08/20/20 07:19 Sodium Chloride IV ONCE PRN Nausea and Vomiting Ondansetron HCl 4 mg 08/20/20 07:19 Ondansetron Hcl 4 Mg/2 Ml Vial IVPUSH ONCE PRN Nausea and Vomiting Oxycodone HCl 10 mg 08/20/20 07:19 Oxycodone Hcl Immed Release 5 Mg Tablet PO ONCE PRN Pain, Mild (Pain Scale 1-3) Time Spent With Patient Time: Total time spent is greater than 50% in coordination of care (as documented) at patient's floor/unit and/or counseling patient: Time with patient: less than 15 minutes
[2020-08-20 11:25] LABS: Hematocrit 39.3 % (37-47); Hemoglobin 12.6 g/dl (12.0-16.0)
[2020-08-20 11:30] LABS: Carbon Monoxide POC 0.3 %
[2020-08-20] MEDS: HYDROmorphone HCl 0.5 MG/0.5 ML SYRINGE IVPUSH ×2 (11:37→11:51)
[2020-08-20 12:03] LABS: Anion Gap 18 (12-20); Blood Urea Nitrogen 7 mg/dL (9-16); Calcium 8.9 mg/dL (8.4-10.2); Carbon Dioxide 20 mmol/L (22-29); Chloride 104 mmol/L (96-108); Creatinine Clr Calc Pharmacy 109.6; Estimated Glomerular Filt Rate > 60; Glucose Random 145 mg/dL (60-115); Potassium 3.9 mmol/L (3.3-5.1); Sodium 138 mmol/L (135-145)
[2020-08-20 13:02] LABS: Carbon Monoxide Refer to POC result
[2020-08-20] MEDS: Lactated Ringers 1,000 ML 125 ML IVCONT ×2 (13:11→21:14)
[2020-08-20] MEDS: ceFAZolin Sodium/Dextrose,Iso 2 GM/50 ML PIGGYBACK IV (13:24)
[2020-08-20] MEDS: amLODIPine Besylate 5 MG TABLET PO (13:24)
[2020-08-20] MEDS: ondansetron HCL 4 MG/2 ML VIAL IVPUSH ×2 (15:23→23:25)
[2020-08-20] MEDS: hydrALAZINE HCl 20 MG/ML VIAL 10 MG IVPUSH (17:02)
[2020-08-20] MEDS: Metoclopramide HCl 10 MG/2 ML VIAL IVPUSH (19:46)
[2020-08-20] MEDS: Venlafaxine HCl ER 150 MG CAP.ER.24H PO (21:14)
[2020-08-20] MEDS: 0.9 % Sodium Chloride Flush 3 ML SYRINGE IVFLUSH (21:14)
[2020-08-21 03:41] VITALS: BP 148/73; PULSE 72; RESP 20; TEMP 36.4; O2SAT 98
[2020-08-21 04:56] LABS: Basophils Percent Auto 0.1 % (0-2); Eosinophils Percent Auto 0.2 % (0-4); Hematocrit 38.5 % (37-47); Hemoglobin 12.6 g/dl (12.0-16.0); Imm Gran Abs Auto 0.07 X10*3/uL (0.00-0.03); Imm Gran Pct Auto 0.4 % (0.0-0.4); Lymphocytes Absolute Auto 3.2 X10*3/uL (1.2-4.9); Lymphocytes Percent Auto 18.6 % (20-40); MANUAL DIFF FLAG SCAN; Mean Corpuscular HGB Conc 32.7 g/dl (31.0-35.0); Mean Corpuscular Hemoglobin 28.8 pg (27.0-33.0); Mean Corpuscular Volume 88.1 fL (80-98); Mean Platelet Volume 11.2 fL (9.4-12.3); Monocytes Absolute Auto 1.8 X10*3/uL (0.1-1.2); Monocytes Percent Auto 10.4 % (2-11); Neutrophils Percent Auto 70.3 % (45-73); Platelet Count 226 X10*3/uL (160-400); Red Blood Count 4.37 X10*6/uL (4.20-5.50); Red Cell Distribution Width 14.7 % (11.0-16.0); SCAN SMEAR FLAG 1
[2020-08-21] MEDS: Lactated Ringers 1,000 ML 125 ML IVCONT (05:01)
[2020-08-21 05:19] LABS: SLIDE REVIEW VERIFIED
[2020-08-21 05:24] LABS: Anion Gap 17 (12-20); Blood Urea Nitrogen 4 mg/dL (9-16); Carbon Dioxide 22 mmol/L (22-29); Chloride 102 mmol/L (96-108); Estimated Glomerular Filt Rate > 60; Glucose Random 88 mg/dL (60-115); Potassium 3.9 mmol/L (3.3-5.1); Sodium 137 mmol/L (135-145)
[2020-08-21 07:25] VITALS: BP 169/76; PULSE 61; RESP 18; TEMP 36.5; O2SAT 97
[2020-08-21] MEDS: ondansetron HCL 4 MG/2 ML VIAL IVPUSH (07:46)
[2020-08-21] MEDS: Famotidine/PF 20 MG/2 ML VIAL IVPUSH (07:46)
[2020-08-21] MEDS: amLODIPine Besylate 5 MG TABLET PO (07:47)
--- NOTE | 2020-08-21 09:40 | MHC.CM.PN ---
NURSE WRITER TECHNICAL PUBLICATIONS NOTE ELECTRONIC MEDICAL RECORD REVIEWED ALONG WITH CASE DISCUSSED WITH STAFF NURSE MET WITH PATIENT SHE REPORTED TO ME SHE LIVES WITH HER 25 YEAR OLD DAUGHTER AND 16 YEAR OLD SON. SHE DOES NOT WORK SHE HAS A DISABILITY SHE HAS MULTIPLE SCLEROSIS, SINCE THE AGE OF 24YRS, SHE HAS NOT VNA OR HAIR CUTTER SERVICES IN THE HOME, SHE DOES HAVE A CANE , WALKER AND WHEELCHAIR WHEN NEEDED OR FOR LONG DISTANCES , SHE IS INDEPENDENT IN ALL ADLS AND MOBILITY WITH A DEVICE DISCHARGE PLAN HOME WITH NO SERVICES , S/P BARIATRIC SURGERY TRANSPORTATION FAMILY PCP ISAÍAS MOY INSTRUCTED TO CALL FOR POST HOSPITLA DISCHARGE FOLLOW UP BARIATRIC SURGEON FOLLOW UP PER DISCHARGE INSTRUCTIONS MEDICARE IM EXPLAINED AND GIVEN TO PATIENT
--- NOTE | 2020-08-21 10:01 | HO.POSTANES ---
Post Anesthesia Evaluation Post Anesthesia Evaluation Vital Signs: Vital Signs Temp Pulse Resp BP Pulse Ox 08/21/20 07:25 97.7 F 61 18 169/76 H 97 08/21/20 03:41 97.6 F 72 20 148/73 H 98 08/20/20 23:08 97.2 F 70 20 121/64 97 Anesthesia: General Endotracheal-GETA Mental Status: Awake Pain Control: Satisfactory Nausea/Vomiting: None Hydration: Adequate Anesthesia-Related Issues: No Anes. Related Issues
== END 2020-08-21 09:27 | disposition home or self-care (01) | DRG 620 ==
LOC: HO.SSSA 10:40 → HO.S3 10:46
PROVIDERS: Nurse Practitioner; Physician Assistant; Admitting Provider Surgery; PCP Internal Medicine; Visit Provider Surgery
PROC: 0DB64Z3 Excision of Stomach, Percutaneous Endoscopic Approach, Vertical (ICD-10-PCS; CPT 43845; principal; 2020-08-20 07:30)
DX: E66.01 Morbid (severe) obesity due to excess calories (principal); K44.0 Diaphragmatic hernia with obstruction, without gangrene; G35 Multiple sclerosis; I10 Essential (primary) hypertension; K76.0 Fatty (change of) liver, not elsewhere classified; K66.0 Peritoneal adhesions (postprocedural) (postinfection); Z20.822 Contact with and (suspected) exposure to COVID-19; Z68.38 Body mass index [BMI] 38.0-38.9, adult; K74.00 Hepatic fibrosis, unspecified; Z87.891 Personal history of nicotine dependence; Z79.899 Other long term (current) drug therapy
CPT/HCPCS: 36415; 80048; 80053; 80061; 81025; 83036; 83525; 84443; 85014; 85018; 85025; 85610; 85730; 86140; 86850; 86870; 86885; 86900; 86901; 86920; 86922; 87635; 88307; 88342; 99024; A4649; J0131; J0690; J1100; J1170; J2250; J2405; J2550; J2765; J3010

== ENCOUNTER → 2020-08-26 08:58 | Outpatient (BNVA) | payer MEDICARE, MEDICAID, SELFPAY | PROVIDERS: PCP Internal Medicine; Visit Provider Surgery | DX: E66.9 Obesity, unspecified (principal); Z68.35 Body mass index [BMI] 35.0-35.9, adult; Z71.3 Dietary counseling and surveillance | CPT/HCPCS: 99212 ==

== ENCOUNTER → 2020-09-27 08:09 | Outpatient (BNVA) | payer MEDICARE, MEDICAID, SELFPAY | PROVIDERS: PCP Internal Medicine; Visit Provider Surgery | DX: E66.9 Obesity, unspecified (principal); Z68.34 Body mass index [BMI] 34.0-34.9, adult; Z71.3 Dietary counseling and surveillance | CPT/HCPCS: 99212 ==

== ENCOUNTER → 2020-11-13 06:57 | Outpatient (BNVA) | payer MEDICARE, MEDICAID, SELFPAY | PROVIDERS: PCP Internal Medicine; Visit Provider Surgery | DX: E66.9 Obesity, unspecified (principal); Z68.33 Body mass index [BMI] 33.0-33.9, adult | CPT/HCPCS: 99212 ==

== ENCOUNTER → 2020-12-25 07:07 | Outpatient (BNVA) | payer MEDICARE, MEDICAID, SELFPAY | PROVIDERS: PCP Internal Medicine; Visit Provider Surgery | CPT/HCPCS: Q3014 ==

== ENCOUNTER → 2021-01-24 07:59 | Outpatient (BNVA) | payer MEDICARE, MEDICAID, SELFPAY | PROVIDERS: PCP Internal Medicine; Visit Provider Surgery | DX: E66.3 Overweight (principal); Z68.29 Body mass index [BMI] 29.0-29.9, adult | CPT/HCPCS: Q3014 ==

== ENCOUNTER → 2021-03-21 08:16 | Outpatient (BNVA) | payer MEDICARE, MEDICAID, SELFPAY | PROVIDERS: PCP Internal Medicine; Visit Provider Physician Assistant Surgical | CPT/HCPCS: Q3014 ==

== ENCOUNTER 2021-03-25 08:03 | Outpatient (REF) | payer MEDICARE, MEDICAID, SELFPAY ==
[2021-03-25 08:24] LABS: MANUAL DIFF FLAG NO
[2021-03-25 08:34] LABS: Basophils Absolute Auto 0.1 X10*3/uL (0.0-0.2); Basophils Percent Auto 0.7 % (0-2); Eosinophils Absolute Auto 0.4 X10*3/uL (0.0-0.4); Eosinophils Percent Auto 4.5 % (0-4); Hematocrit 39.5 % (37.0-47.0); Imm Gran Abs Auto 0.02 X10*3/uL (0.00-0.03); Imm Gran Pct Auto 0.2 % (0.0-0.4); Lymphocytes Absolute Auto 3.8 X10*3/uL (1.2-4.9); Lymphocytes Percent Auto 43.8 % (20-40); Mean Corpuscular HGB Conc 32.9 g/dl (31.0-35.0); Mean Corpuscular Hemoglobin 29.7 pg (27.0-33.0); Mean Corpuscular Volume 90.2 fL (80.0-98.0); Mean Platelet Volume 10.9 fL (9.4-12.3); Monocytes Absolute Auto 0.6 X10*3/uL (0.1-1.2); Monocytes Percent Auto 7.3 % (2-11); Neutrophils Absolute Auto 3.8 x10*3/uL (2.0-8.3); Neutrophils Percent Auto 43.5 % (45-73); Platelet Count 180 X10*3/uL (160-400); Red Blood Count 4.38 X10*6/uL (4.20-5.50); Red Cell Distribution Width 15.4 % (11.0-16.0); White Blood Count 8.7 X10*3/uL (4.8-10.8)
[2021-03-25 08:44] LABS: Estimated Average Glucose 100 mg/dL; Hemoglobin A1c % 5.1 %
[2021-03-25 08:58] LABS: Anion Gap 13 (12-20); Blood Urea Nitrogen 13 mg/dL (9-16); Calcium 9.4 mg/dL (8.4-10.2); Carbon Dioxide 25 mmol/L (22-29); Chloride 108 mmol/L (96-108); Cholesterol 180 mg/dL; Estimated Glomerular Filt Rate > 60; Glucose Random 92 mg/dL (60-115); HDL Cholesterol 54 mg/dL; Iron 102 mcg/dL (30-160); LDL Cholesterol Calculated 113 mg/dl; Percent Iron Saturation 23 % (15-50); Sodium 142 mmol/L (135-145); Total Iron Binding Capacity 438 mcg/dL (228-428); Triglycerides 69 mg/dL; Unsaturated Iron Binding 336 ug/dL
[2021-03-25 09:27] LABS: Ferritin 15 ng/mL (10-250); TSH reflex Free T4 0.79 uIU/mL (0.32-4.0); Vitamin D 25-OH Total 58.4 ng/mL (>30)
[2021-03-25 09:34] LABS: Folate > 20.0 ng/mL (> or = 4.0); Vitamin B12 668 pg/mL (200-900)
[2021-03-26 16:16] LABS: Calcium (PTHI) 9.2 mg/dL (8.6-10.2); PTHI 28 pg/mL (14-64)
[2021-03-29 11:06] LABS: Vitamin B1 14 nmol/L (8-30)
[2021-03-29 12:40] LABS: Zinc 77 mcg/dL (60-130)
[2021-03-29 18:11] LABS: Vitamin A 39 mcg/dL (38-98)
== END 2021-03-25 08:04 | disposition home or self-care (01) ==
LOC: HO.LAB 08:03
PROVIDERS: PCP Internal Medicine; Visit Provider Physician Assistant Surgical
DX: E66.3 Overweight (principal); Z98.84 Bariatric surgery status
CPT/HCPCS: 36415; 80048; 80061; 82306; 82607; 82728; 82746; 83036; 83540; 83970; 84425; 84443; 84590; 84630; 85025; 86140

== ENCOUNTER → 2021-04-02 08:15 | Outpatient (BNVA) | payer MEDICARE, MEDICAID, SELFPAY | PROVIDERS: PCP Internal Medicine; Visit Provider Dietitian, Registered | DX: E66.3 Overweight (principal); Z98.84 Bariatric surgery status | CPT/HCPCS: 97803 ==

== ENCOUNTER → 2021-04-30 08:02 | Outpatient (BNVA) | payer MEDICARE, MEDICAID, SELFPAY | PROVIDERS: PCP Internal Medicine; Referring Provider Surgery; Visit Provider Dietitian, Registered | DX: E66.3 Overweight (principal); Z68.28 Body mass index [BMI] 28.0-28.9, adult; Z71.3 Dietary counseling and surveillance | CPT/HCPCS: 97803 ==

== ENCOUNTER → 2021-05-23 07:57 | Outpatient (BNVA) | payer MEDICARE, MEDICAID, SELFPAY | PROVIDERS: PCP Internal Medicine; Visit Provider Physician Assistant Surgical | DX: E66.3 Overweight (principal); Z68.27 Body mass index [BMI] 27.0-27.9, adult; Z98.84 Bariatric surgery status | CPT/HCPCS: Q3014 ==

== ENCOUNTER → 2021-07-21 08:05 | Outpatient (BNVA) | payer MEDICARE, MEDICAID, SELFPAY | PROVIDERS: PCP Internal Medicine; Referring Provider Internal Medicine; Visit Provider Physician Assistant Surgical | DX: E66.3 Overweight (principal); Z68.28 Body mass index [BMI] 28.0-28.9, adult; Z98.84 Bariatric surgery status | CPT/HCPCS: 99212 ==

== ENCOUNTER 2021-08-19 08:00 | Outpatient (REF) | payer MEDICARE, MEDICAID, SELFPAY ==
[2021-08-19 08:55] LABS: MANUAL DIFF FLAG NO
[2021-08-19 09:38] LABS: Basophils Percent Auto 0.3 % (0-2); Eosinophils Absolute Auto 0.3 X10*3/uL (0.0-0.4); Hematocrit 41.6 % (37.0-47.0); Hemoglobin 13.5 g/dl (12.0-16.0); Imm Gran Abs Auto 0.04 X10*3/uL (0.00-0.03); Imm Gran Pct Auto 0.5 % (0.0-0.4); Lymphocytes Absolute Auto 3.1 X10*3/uL (1.2-4.9); Lymphocytes Percent Auto 35.7 % (20-40); Mean Corpuscular HGB Conc 32.5 g/dl (31.0-35.0); Mean Corpuscular Hemoglobin 30.3 pg (27.0-33.0); Mean Corpuscular Volume 93.3 fL (80.0-98.0); Monocytes Absolute Auto 0.5 X10*3/uL (0.1-1.2); Monocytes Percent Auto 5.7 % (2-11); Neutrophils Absolute Auto 4.8 x10*3/uL (2.0-8.3); Neutrophils Percent Auto 54.8 % (45-73); Platelet Count 235 X10*3/uL (160-400); Red Blood Count 4.46 X10*6/uL (4.20-5.50); Red Cell Distribution Width 14.7 % (11.0-16.0); White Blood Count 8.7 X10*3/uL (4.8-10.8)
[2021-08-19 10:00] LABS: Estimated Average Glucose 100 mg/dL; Hemoglobin A1c % 5.1 %
[2021-08-19 10:13] LABS: Anion Gap 15 (12-20); Blood Urea Nitrogen 15 mg/dL (9-16); Calcium 10.1 mg/dL (8.4-10.2); Carbon Dioxide 27 mmol/L (22-29); Chloride 105 mmol/L (96-108); Cholesterol 188 mg/dL; Estimated Glomerular Filt Rate > 60; Glucose Random 95 mg/dL (60-115); HDL Cholesterol 62 mg/dL; Iron 147 mcg/dL (30-160); LDL Cholesterol Calculated 112 mg/dl; Percent Iron Saturation 30 % (15-50); Potassium 4.8 mmol/L (3.3-5.1); Sodium 142 mmol/L (135-145); Total Iron Binding Capacity 482 mcg/dL (228-428); Triglycerides 74 mg/dL; Unsaturated Iron Binding 335 ug/dL
[2021-08-19 10:36] LABS: Ferritin 15 ng/mL (10-250); TSH reflex Free T4 1.14 uIU/mL (0.32-4.0); Vitamin D 25-OH Total 66.1 ng/mL (>30)
[2021-08-19 11:03] LABS: Folate > 20.0 ng/mL (> or = 4.0); Vitamin B12 1074 pg/mL (200-900)
[2021-08-20 14:11] LABS: Calcium (PTHI) 9.7 mg/dL (8.6-10.2); PTHI 35 pg/mL (16-77)
[2021-08-23 17:41] LABS: Zinc 82 mcg/dL (60-130)
[2021-08-24 14:41] LABS: Vitamin B1 14 nmol/L (8-30)
[2021-08-24 23:51] LABS: Vitamin A 42 mcg/dL (38-98)
== END 2021-08-19 08:01 | disposition home or self-care (01) ==
LOC: HO.LAB 08:00
PROVIDERS: PCP Internal Medicine; Referring Provider Internal Medicine; Visit Provider Physician Assistant Surgical
DX: E66.3 Overweight (principal)
CPT/HCPCS: 36415; 80048; 80061; 82306; 82607; 82728; 82746; 83036; 83540; 83970; 84425; 84443; 84590; 84630; 85025; 86140; 99212

== ENCOUNTER → 2021-10-30 09:17 | Outpatient (BNVA) | payer MEDICARE, MEDICAID, SELFPAY | PROVIDERS: PCP Internal Medicine; Referring Provider Internal Medicine; Visit Provider Physician Assistant Surgical | DX: E66.3 Overweight (principal); Z68.28 Body mass index [BMI] 28.0-28.9, adult; Z98.84 Bariatric surgery status | CPT/HCPCS: 99212 ==

== ENCOUNTER → 2022-01-08 08:03 | Outpatient (BNVA) | payer MEDICARE, MEDICAID, SELFPAY | PROVIDERS: PCP Internal Medicine; Referring Provider Internal Medicine; Visit Provider Physician Assistant Surgical | DX: E66.3 Overweight (principal); Z68.28 Body mass index [BMI] 28.0-28.9, adult; Z98.84 Bariatric surgery status | CPT/HCPCS: 99212 ==

== ENCOUNTER 2022-02-12 08:03 | Outpatient (REF) | payer MEDICARE, MEDICAID, SELFPAY ==
[2022-02-12 08:32] LABS: MANUAL DIFF FLAG NO
[2022-02-12 09:22] LABS: Basophils Absolute Auto 0.1 X10*3/uL (0.0-0.2); Basophils Percent Auto 0.7 % (0-2); Eosinophils Absolute Auto 0.4 X10*3/uL (0.0-0.4); Eosinophils Percent Auto 4.2 % (0-4); Hematocrit 37.4 % (37.0-47.0); Hemoglobin 12.5 g/dl (12.0-16.0); Imm Gran Abs Auto 0.05 X10*3/uL (0.00-0.03); Imm Gran Pct Auto 0.5 % (0.0-0.4); Lymphocytes Absolute Auto 3.1 X10*3/uL (1.2-4.9); Lymphocytes Percent Auto 33.2 % (20-40); Mean Corpuscular HGB Conc 33.4 g/dl (31.0-35.0); Mean Corpuscular Hemoglobin 30.8 pg (27.0-33.0); Mean Corpuscular Volume 92.1 fL (80.0-98.0); Mean Platelet Volume 10.6 fL (9.4-12.3); Monocytes Absolute Auto 0.6 X10*3/uL (0.1-1.2); Monocytes Percent Auto 6.4 % (2-11); Neutrophils Absolute Auto 5.1 x10*3/uL (2.0-8.3); Platelet Count 177 X10*3/uL (160-400); Red Blood Count 4.06 X10*6/uL (4.20-5.50); Red Cell Distribution Width 15.7 % (11.0-16.0); White Blood Count 9.4 X10*3/uL (4.8-10.8)
[2022-02-12 09:27] LABS: Estimated Average Glucose 97 mg/dL
[2022-02-12 10:03] LABS: Alanine Aminotransferase 15 U/L (0-31); Alkaline Phosphatase 55 U/L (39-117); Anion Gap 13 (12-20); Aspartate Amino Transferase 16 U/L (5-31); Blood Urea Nitrogen 12 mg/dL (9-16); C Reactive Protein 0.16 mg/dL (< or = 0.50); Calcium 9.3 mg/dL (8.4-10.2); Carbon Dioxide 25 mmol/L (22-29); Chloride 107 mmol/L (96-108); Cholesterol 175 mg/dL; Estimated Glomerular Filt Rate > 60; Glucose Random 90 mg/dL (60-115); HDL Cholesterol 62 mg/dL; Iron 102 mcg/dL (30-160); LDL Cholesterol Calculated 97 mg/dl; Percent Iron Saturation 26 % (15-50); Potassium 4.3 mmol/L (3.3-5.1); Sodium 141 mmol/L (135-145); Total Iron Binding Capacity 385 mcg/dL (228-428); Total Protein 6.9 g/dL (6.5-8.0); Triglycerides 81 mg/dL; Unsaturated Iron Binding 283 ug/dL
[2022-02-12 10:11] LABS: Ferritin 11 ng/mL (10-250); TSH reflex Free T4 1.02 uIU/mL (0.32-4.0); Vitamin D 25-OH Total 43.9 ng/mL (>30)
[2022-02-12 10:41] LABS: Folate > 20.0 ng/mL (> or = 4.0); Vitamin B12 969 pg/mL (200-900)
[2022-02-12 10:43] LABS: Insulin 8 uU/mL (2-29)
[2022-02-13 12:55] LABS: Calcium (PTHI) 9.2 mg/dL (8.6-10.2); PTHI 32 pg/mL (16-77)
[2022-02-17 16:43] LABS: Zinc 113 mcg/dL (60-130)
[2022-02-18 11:41] LABS: Vitamin A 43 mcg/dL (38-98)
[2022-02-18 15:52] LABS: Vitamin B1 28 nmol/L (8-30)
== END 2022-02-12 08:04 | disposition home or self-care (01) ==
LOC: HO.LAB 08:03
PROVIDERS: PCP Internal Medicine; Visit Provider Physician Assistant Surgical
DX: K91.2 Postsurgical malabsorption, not elsewhere classified (principal); Z98.84 Bariatric surgery status
CPT/HCPCS: 36415; 80053; 80061; 82306; 82607; 82728; 82746; 83036; 83525; 83540; 83970; 84425; 84443; 84590; 84630; 85025; 86140

== ENCOUNTER → 2022-02-19 08:03 | Outpatient (BNVA) | payer MEDICARE, MEDICAID, SELFPAY | PROVIDERS: PCP Internal Medicine; Referring Provider Internal Medicine; Visit Provider Physician Assistant Surgical | DX: E66.3 Overweight (principal); Z98.84 Bariatric surgery status; Z68.28 Body mass index [BMI] 28.0-28.9, adult | CPT/HCPCS: 99212 ==

== ENCOUNTER → 2022-05-22 09:09 | Outpatient (BNVA) | payer MEDICARE, MEDICAID, SELFPAY | PROVIDERS: PCP Internal Medicine; Visit Provider Physician Assistant Surgical | DX: E66.3 Overweight (principal); Z68.28 Body mass index [BMI] 28.0-28.9, adult; L98.7 Excessive and redundant skin and subcutaneous tissue; Z98.84 Bariatric surgery status | CPT/HCPCS: 99212 ==

== ENCOUNTER → 2022-07-03 08:18 | Outpatient (BNVA) | payer MEDICARE, MEDICAID, SELFPAY | PROVIDERS: PCP Internal Medicine; Visit Provider Physician Assistant Surgical | DX: E66.3 Overweight (principal); L98.7 Excessive and redundant skin and subcutaneous tissue; Z98.84 Bariatric surgery status; Z68.28 Body mass index [BMI] 28.0-28.9, adult | CPT/HCPCS: 99212 ==

== ENCOUNTER → 2022-09-08 13:43 | Outpatient (BNVA) | payer MEDICARE, MEDICAID, SELFPAY | PROVIDERS: PCP Internal Medicine; Visit Provider Physician Assistant Surgical | DX: E66.3 Overweight (principal); Z68.28 Body mass index [BMI] 28.0-28.9, adult; L98.7 Excessive and redundant skin and subcutaneous tissue; Z98.84 Bariatric surgery status | CPT/HCPCS: 99212 ==

== ENCOUNTER 2023-03-04 09:44 | Outpatient (AMB) | payer MEDICARE, MEDICAID, SELFPAY ==
--- NOTE | 2023-03-04 09:57 | A.OFFVIS_ITS ---
Intake VS Expanded 03/04/23 10:03 BP 143/69 H Blood Pressure Location Rt brachial Blood Pressure Position Sitting Pulse 92 Pulse Source Pulse Oximeter Temp 98.1 F Temperature Source Temporal Artery Scan Pulse Oximetry 98 Oxygen Delivery Method Room Air Height 5 ft 4.5 in Weight 168 lb 9.6 oz BMI 28.5 Body Fat % 35.5 Body Fat Mass 59.8 Fat Free Mass 108.6 Visceral Fat Rating 7.0 Body Water % 45.9 Body Water Mass 77.4 Muscle Mass/Score 103.2 Basal Metabolic Rate/Score 1,481 Intake Visit Reasons: (OV) PO LSG 08/20/20 Allergies No Known Allergies Allergy (Verified 03/04/23 10:01) Medication List - Last Reconciled 03/04/23 by CATHERINE Mayberry [celebrate bariatric MVI PO DAILY] [Celebrate ang+D PO BID] cholecalciferol (vitamin D3) (Vitamin D3) 25 mcg PO DAILY clotrimazole 1% 1 appl topical BID natalizumab (Tysabri) 300 mg IV Q6W venlafaxine ER 1 cap PO BEDTIME HPI HPI Comments History of Present Illness Details This?is a?47?yo female who is s/p LSG 08/20/2020. Presents for 2.5 year post op visit. No complaints of nausea, emesis, abdominal pain or reflux, or constipation. Was started on phentermine by PCP, weight is same since last visit. Pt presents in follow up of excess skin of arms and legs. Current meal plan: Premier Protein shake- 1 per day can of tuna (17g) protein bar or yogurt meal of 2-3oz protein All meals last 20 - 30 minutes and does not drink and eat at the same time. Exercise routine includes: gym 5x for 90-120min, burning 4000 calories/week Pt reports continued problems of excess skin of upper arms. She gets chafing and itchy painful rashes where her arms rub up against her body. Has used the clotrimazole ointment frequently for 3+ months but this has not resolved the painful rashes. Reports a burning painful sensation with the chafing. Has to use a protective pad to put in axilla during the day and with sleep to protect skin. Has to wear tight sleeves around upper arms to hold skin in place and skin can get pinched when she is getting dressed. Notices a lot of discomfort with movement/walking, physical activity and exercise with excess skin of arms as it moves around a lot with activity and limits her range of motion. The excess skin of her arms is very heavy and uncomfortable which worsens her MS symptoms. ? Pt also reports continued problems of excess skin of upper thighs. Has to wear tight pants around upper thighs to hold skin in place. Cannot wear shorts because otherwise skin will rub together and cause rashes in skin folds. Skin can get pinched when she is getting dressed. Has used the clotrimazole ointment frequently for 3+ months but this has not resolved the painful rashes. She has been experiencing worsening rashes in the crease where her buttocks meet the back of her legs. Difficult to bathe as adequately cleaning the crease of her buttocks is challenging due to the excess skin getting in the way. Notices a lot of discomfort with movement/walking, physical activity and exercise with excess skin of legs as it moves around a lot with activity and limits her range of motion.?The excess skin of her arms is very heavy and uncomfortable which wor sens her MS symptoms. [facility] Medical History Abnormal EKG COVID-19 vaccine series completed GERD (gastroesophageal reflux disease) Hypertension Liver fibrosis Morbid obesity Multiple sclerosis Numbness Pain Smoking Steatosis, liver Vitamin A deficiency Vitamin B1 deficiency Vitamin B12 deficiency Vitamin D deficiency Surgical History History of sleeve gastrectomy Hx of cholecystectomy Hx of section Family History Mother No problems noted. Father No problems noted. Sister No problems noted. Son No problems noted. Daughter No problems noted. Social History (Updated 03/04/23 @ 10:02 by Carina Rehman CMA) Are you a primary care management specialist to a significant other at home: Yes (children) Do you presently have visiting nurse or other home services: No Alcohol intake: current Alcohol intake frequency: holidays/special occasions only Patient Tobacco Use Status: Former Tobacco user Cigarettes Per Day: 0 (quit 07/23/2020) Years Smoked: 30 service: No Current occupational status: disabled Physical Exam Vital Signs: Last Vital Signs Temp 98.1 F 03/04/23 10:03 Pulse 92 03/04/23 10:03 BP 143/69 H 03/04/23 10:03 Pulse Ox 98 03/04/23 10:03 Oxygen Delivery Method Room Air 03/04/23 10:03 BMI result Body Mass Index 28.5 Assessment & Plan Assessment & Plan (1) Excess skin: Code(s): L98.7 - Excessive and redundant skin and subcutaneous tissue (2) Overweight: Code(s): E66.3 - Overweight (3) S/P laparoscopic sleeve gastrectomy: Code(s): Z98.84 - Bariatric surgery status Plan New meal plan to prepare for surgery: breakfast- Premier 1 scoop in 8oz U[facility] lunch- same shake snack- Atkins or Built bar dinner- 6 forks protein, 6 forks salad/veg Pt is having issues of excess skin of upper arms, resulting in persistent painful rashes refractory to topical Rx treatment, and limiting her physical function due to pain and discomfort, including her ability to walk comfortably, and exercise which is necessary to maintain her excellent weight loss. She has also experienced worsening of her MS symptoms due to the excess skin. Conservative treatment has not been effective in relieving the pain, discomfort, and limitation of physical function she is experiencing, and therefore she would benefit from definitive treatment of brachioplasty. In addition, pt is having issues of excess skin of upper thighs resulting in persistent painful rashes refractory to topical Rx treatment, and limiting her physical function due to pain and discomfort, including her ability to walk comfortably, and exercise which is necessary to maintain her excellent weight loss. She has also experienced worsening of her MS symptoms due to the excess skin. Conservative treatment has not been effective in relieving the pain, discomfort, and limitation of physical function she is experiencing, and therefore she would benefit from definitive treatment of thighplasty. Will resubmit to insurance today. Pt will provide our office with a letter of support from her PCP. Patient is overweight and with ongoing issues of excess skin, and is not considered stable at this time. I spent a total of 30 minutes reviewing/updating records, examining the patient and counseling the patient on weight management as detailed above. Coding Level of Care Code Est Pt Level 4 (04140) Diagnoses Excess skin L98.7 Overweight E66.3 S/P laparoscopic sleeve gastrectomy Z98.84
[2023-03-04 10:03] VITALS: BP 143/69; PULSE 92; TEMP 36.7; O2SAT 98; BMI 28.5
== END 2023-03-04 10:49 | disposition home or self-care (01) ==
PROVIDERS: PCP Internal Medicine; Visit Provider Physician Assistant Surgical
DX: L98.7 Excessive and redundant skin and subcutaneous tissue (principal); E66.3 Overweight; Z90.3 Acquired absence of stomach [part of]; Z98.84 Bariatric surgery status
CPT/HCPCS: 99214

== ENCOUNTER → 2023-03-04 09:44 | Outpatient (BNVA) | payer MEDICARE, MEDICAID, SELFPAY | PROVIDERS: PCP Internal Medicine; Visit Provider Physician Assistant Surgical | DX: E66.3 Overweight (principal); L98.7 Excessive and redundant skin and subcutaneous tissue; Z98.84 Bariatric surgery status; Z68.28 Body mass index [BMI] 28.0-28.9, adult | CPT/HCPCS: 99212 ==

== ENCOUNTER 2023-05-24 08:02 | Outpatient (AMB) | payer MEDICARE, MEDICAID, SELFPAY ==
[2023-05-24 09:24] VITALS: BMI 28.2
--- NOTE | 2023-05-24 09:24 | A.OFFVIS_ITS ---
Intake VS Expanded 05/24/23 09:24 Height 5 ft 4.5 in Weight 167 lb BMI 28.2 Intake Visit Reasons: TV Pre Op Brachioplasty/Thighplasty 06/09/23 Allergies No Known Allergies Allergy (Verified 05/24/23 09:25) Medication List - Last Reconciled 05/24/23 by Zi Fountain MD [celebrate bariatric MVI PO DAILY] [Celebrate ang+D PO BID] cephalexin 500 mg PO Q12H cholecalciferol (vitamin D3) (Vitamin D3) 25 mcg PO DAILY clotrimazole 1% 1 appl topical BID docusate sodium (Colace) 100 mg PO DAILY ocrelizumab (Ocrevus) 600 mg IV [id number] omeprazole 20 mg PO DAILY venlafaxine ER 1 cap PO BEDTIME HPI TV Pre Op Brachioplasty/Thighplasty 06/09/23 HPI Details Start time: 9.16am, End time: 9.49am ?I spent 28 minutes speaking with the patient on the phone plus an additional 5 minutes reviewing and updating records for a total of 33 minutes HPI Comments History of Present Illness Details Overall weight loss: 97.8lbs, or 36.93% TBWL Is doing 2 Premier protein shakes (one scoop in 8oz Farilife milk), one Atkins protein bar, one meal (4 forks of protein of 4 forks of salad or vegetables) Exercise: Gym x5/week doing treadmill x5/week for 600-800 calories (speed 4.0 and incline of 12.0) PFSH Medical History Abnormal EKG COVID-19 vaccine series completed GERD (gastroesophageal reflux disease) Hypertension Liver fibrosis Morbid obesity Multiple sclerosis Numbness Pain Smoking Steatosis, liver Vitamin A deficiency Vitamin B1 deficiency Vitamin B12 deficiency Vitamin D deficiency Surgical History History of sleeve gastrectomy Hx of cholecystectomy Hx of section Family History Mother No problems noted. Father No problems noted. Sister No problems noted. Son No problems noted. Daughter No problems noted. 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 Plan for bilateral brachioplasty and thighplasty. Risks of infection, bleeding, asymmetry, wound dehiscence and blood clots were discussed with the patient. 2. You will need to be doing sponge baths the first 1-2 weeks. No showers. You need to have help at home to get you up and limit your activities as much as possible for at least the 4-6 weeks after surgery 3. We will arrange for a visiting nurse to come at home to help you with dressing changes and send me pictures of the procedures. We will send at your home supplies for the dressing changes. 4. Change nutritional plan to 2 Premier protein shakes (HALF scoop EACH in 8oz Farilife milk), one Atkins protein bar, one meal (4 forks of protein of 4 forks of salad or vegetables) This will improve weight loss and healing after surgery. 5. Continue all vitamins 6. Do blood work not fasting any day between Wednesday05/31/23 and Wednesday06/04/23 and bead picker the antibiotic prescription from your pharmacy 7. Risks and complications were discussed the possibility of bleeding that may require transfusion, loss of the umbilicus, wound dehiscence or infection, dog ears , flap asymmetry. We also discussed the importance of strict avoidance of weight lifting. 8. Avoid aspirin, motrin, ibuprofen, Aleve, Advil, Naproxyn. Only Tylenol is OK 9. Exercise: continue Gym x5/week doing treadmill x5/week for 600-800 calories (speed 4.0 and incline of 12.0) Orders: Orders Prothrombin Time INR Today K91.2 - Postsurgical malabsorption, not elsewhere classified, Z90.3 - Acquired absence of stomach [part of] Vitamin B1 Today K91.2 - Postsurgical malabsorption, not elsewhere classified, Z90.3 - Acquired absence of stomach [part of] C Reactive Protein Today K91.2 - Postsurgical malabsorption, not elsewhere classified, Z90.3 - Acquired absence of stomach [part of] Partial Thromboplastin Time Today K91.2 - Postsurgical malabsorption, not elsewhere classified, Z90.3 - Acquired absence of stomach [part of] Vitamin D 25-OH Total Today K91.2 - Postsurgical malabsorption, not elsewhere classified, Z90.3 - Acquired absence of stomach [part of] Complete Blood Count Auto Diff Today K91.2 - Postsurgical malabsorption, not elsewhere classified, Z90.3 - Acquired absence of stomach [part of] IRON PROFILE Today K91.2 - Postsurgical malabsorption, not elsewhere classified, Z90.3 - Acquired absence of stomach [part of] TSH reflex Free T4 Today K91.2 - Postsurgical malabsorption, not elsewhere classified, Z90.3 - Acquired absence of stomach [part of] Comprehensive Met. Panel Today K91.2 - Postsurgical malabsorption, not elsewhere classified, Z90.3 - Acquired absence of stomach [part of] Vitamin A Today K91.2 - Postsurgical malabsorption, not elsewhere classified, Z90.3 - Acquired absence of stomach [part of] Hemoglobin A1c Today K91.2 - Postsurgical malabsorption, not elsewhere classified, Z90.3 - Acquired absence of stomach [part of] Lipid Panel Today K91.2 - Postsurgical malabsorption, not elsewhere classified, Z90.3 - Acquired absence of stomach [part of] Type and Screen Today K91.2 - Postsurgical malabsorption, not elsewhere classified, Z90.3 - Acquired absence of stomach [part of] Vitamin B12 Today K91.2 - Postsurgical malabsorption, not elsewhere classified, Z90.3 - Acquired absence of stomach [part of] Ferritin Today K91.2 - Postsurgical malabsorption, not elsewhere classified, Z90.3 - Acquired absence of stomach [part of] Zinc Today K91.2 - Postsurgical malabsorption, not elsewhere classified, Z90.3 - Acquired absence of stomach [part of] Medications: New cephalexin 500 mg PO Q12H 60 caps 2RF M79.3 - Panniculitis, unspecified docusate sodium (Colace) 100 mg PO DAILY 30 caps 2RF K59.00 - Constipation, unspecified Telehealth Telehealth Location of provider rendering services: practice address Location of patient: address on file Patient Identification confirmed using: Name, : Yes Telehealth method: voice only Patient verbally consented to treatment: Yes Patient verbally consented to billing insurance company: Yes Patient informed of any privacy concerns related to visit: Yes Minutes spent on Phone/Video with Pt.: 33 Coding Level of Care Code Tele Est Pt Level 4 (00738) Diagnoses Excess skin L98.7 Time Spent (min) 33
== END 2023-05-24 09:50 | disposition home or self-care (01) ==
LOC: HO.HBS 08:02
PROVIDERS: PCP Internal Medicine; Visit Provider Surgery
DX: L98.7 Excessive and redundant skin and subcutaneous tissue (principal)
CPT/HCPCS: 99024

== ENCOUNTER → 2023-05-24 08:02 | Outpatient (BNVA) | payer MEDICARE, MEDICAID, SELFPAY | PROVIDERS: PCP Internal Medicine; Visit Provider Surgery ==

== ENCOUNTER → 2023-05-31 10:08 | Outpatient (BNV) | payer MEDICARE, MEDICAID, SELFPAY | PROVIDERS: PCP Internal Medicine; Visit Provider Internal Medicine Cardiovascular Disease | DX: L98.7 Excessive and redundant skin and subcutaneous tissue (principal); Z01.810 Encounter for preprocedural cardiovascular examination | CPT/HCPCS: 93010 ==

== ENCOUNTER 2023-06-09 05:50 | Day surgery (SDC) | payer MEDICARE, MEDICAID, SELFPAY ==
--- NOTE | 2023-05-31 | ECG_ITS ---
Test Reason : preop Blood Pressure : / mmHG Vent. Rate : 069 BPM Atrial Rate : 069 BPM P-R Int : 200 ms QRS Dur : 086 ms QT Int : 406 ms P-R-T Axes : 058 022 049 degrees QTc Int : 435 ms Normal sinus rhythm Normal ECG When compared with ECG of 15-MAY-2020 10:14, No significant change was found Referred By: Kelle Zuñiga Electronically Signed By:Cruzito Martin
[2023-05-31 09:32] VITALS: BP 115/61; PULSE 84; RESP 16; O2SAT 99; BMI 28.6
[2023-05-31 10:37] LABS: MANUAL DIFF FLAG NO
[2023-05-31 10:59] LABS: Basophils Absolute Auto 0.1 X10*3/uL (0.0-0.2); Eosinophils Absolute Auto 0.3 X10*3/uL (0.0-0.4); Eosinophils Percent Auto 3.5 % (0-4); Hematocrit 40.1 % (37.0-47.0); Hemoglobin 13.5 g/dl (12.0-16.0); Imm Gran Abs Auto 0.07 X10*3/uL (0.00-0.03); Lymphocytes Absolute Auto 1.7 X10*3/uL (1.2-4.9); Lymphocytes Percent Auto 23.7 % (20-40); Mean Corpuscular HGB Conc 33.7 g/dl (31.0-35.0); Mean Corpuscular Hemoglobin 31.3 pg (27.0-33.0); Mean Corpuscular Volume 92.8 fL (80.0-98.0); Mean Platelet Volume 10.3 fL (9.4-12.3); Monocytes Absolute Auto 0.6 X10*3/uL (0.1-1.2); Monocytes Percent Auto 9.1 % (2-11); NRBC Pct Auto 0.3 /100WBC (0.0-0.2); Neutrophils Absolute Auto 4.4 x10*3/uL (2.0-8.3); Neutrophils Percent Auto 61.7 % (45-73); Platelet Count 225 X10*3/uL (160-400); Red Blood Count 4.32 X10*6/uL (4.20-5.50); Red Cell Distribution Width 14.9 % (11.0-16.0); White Blood Count 7.1 X10*3/uL (4.8-10.8)
[2023-05-31 11:06] LABS: INTERNATIONAL NORM RATIO 0.9 (0.9-1.1); Prothrombin Time 10.8 SEC (11.1-13.3)
[2023-05-31 11:08] LABS: Partial Thromboplastin Time 29.8 SEC (26.0-36.8)
[2023-05-31 11:13] LABS: Estimated Average Glucose 91 mg/dL; Hemoglobin A1C 99.5384 umol/L; Hemoglobin A1c % 4.8 % (<6.0)
[2023-05-31 11:44] LABS: Alanine Aminotransferase 30 U/L (0-31); Albumin Level 3.9 g/dL (3.5-5.0); Alkaline Phosphatase 73 U/L (39-117); Anion Gap 10 (12-20); Aspartate Amino Transferase 23 U/L (5-31); Bilirubin Total 0.8 mg/dL (0.0-1.0); Blood Urea Nitrogen 11 mg/dL (9-16); C Reactive Protein 0.14 mg/dL (< or = 0.50); Calcium 9.2 mg/dL (8.4-10.2); Carbon Dioxide 27 mmol/L (22-29); Chloride 107 mmol/L (96-108); Cholesterol 222 mg/dL (<200); Creatinine Clr Calc Pharmacy 90.7; Estimated Glomerular Filt Rate > 60; Glucose Random 93 mg/dL (60-115); HDL Cholesterol 69 mg/dL (>40); Iron 68 mcg/dL (30-160); LDL Cholesterol Calculated 139 mg/dL (<100); Percent Iron Saturation 20 % (15-50); Potassium 3.9 mmol/L (3.3-5.1); Sodium 140 mmol/L (135-145); Total Iron Binding Capacity 340 mcg/dL (228-428); Total Protein 7.4 g/dL (6.5-8.0); Triglycerides 70 mg/dL (<150); Unsaturated Iron Binding 272 ug/dL
[2023-05-31 11:59] LABS: Vitamin B12 935 pg/mL (200-900)
[2023-05-31 12:05] LABS: Ferritin 30 ng/mL (10-250); TSH reflex Free T4 1.02 uIU/mL (0.32-4.0); Vitamin D 25-OH Total 57.5 ng/mL (>30)
[2023-06-03 00:13] LABS: Zinc 72 mcg/dL (60-130)
[2023-06-03 12:33] LABS: Vitamin A 43 mcg/dL (38-98)
[2023-06-05 17:24] LABS: Vitamin B1 <6 nmol/L (8-30)
[2023-06-09] VITALS (17 sets, daily range): BP systolic 122–166; BP diastolic 72–90; PULSE 52–85; RESP 16; TEMP 35.9–36.8; O2SAT 99–100; BMI 28.8
[2023-06-09 06:24] LABS: UPreg QC Valid YES; Urine Pregnancy NEGATIVE (NEGATIVE)
[2023-06-09] MEDS: Lactated Ringers 1,000 ML 100 ML IVCONT (06:55)
--- NOTE | 2023-06-09 07:10 | P.CONAN_ITS ---
HPI - Anesthesia Eval Consult details Narrative: 47 yo female patient for Bilateral Brachioplasty, Bilateral Thighplasty. Sleeve gastrectomy 08/2020 PMF Active Problems Active Problems: All Active Problems (Updated 06/09/23 @ 07:13 by Cecile Meléndez MD) Excess skin (Acute). Lost 24kg since surgery Overweight (Acute) BMI 28.8 S/p sleeve gastrectomy 08/2020 Obesity (Acute) S/P laparoscopic sleeve gastrectomy (Acute) S/P repair of paraesophageal hernia (Acute) Depressive disorder due to separate medical condition (Acute) Steatosis, liver (Acute) Liver fibrosis (Acute) Multiple sclerosis (Acute). In remission. Just started new medication. Injection will be q 6 months. Just had 1st injection GERD (gastroesophageal reflux disease) (Acute) Hypertension (Acute) Morbid obesity (Acute) Past Medical History Medical History Steatosis, liver Liver fibrosis Pain COVID-19 vaccine series completed Numbness Smoking Vitamin A deficiency Vitamin B12 deficiency Vitamin D deficiency Vitamin B1 deficiency Abnormal EKG Multiple sclerosis GERD (gastroesophageal reflux disease) Hypertension Morbid obesity Family History Family History Mother No problems noted. Father No problems noted. Sister No problems noted. Son No problems noted. Daughter No problems noted. Family history of problems with anesthesia: No Surgical History Surgical History H/O hernia repair Hx of colonoscopy (~03/31/23) History of sleeve gastrectomy Hx of cholecystectomy Hx of section History of Problems with Anesthesia: No Social History Social History (Updated 06/09/23 @ 08:18 by Cecile Meléndez MD) Household Members: Children Household Members Other:: adult children Housing: Apartment Are you a primary summer child caregiver to a significant other at home: No Do you presently have visiting nurse or other home services: No Alcohol intake: current Alcohol intake frequency: holidays/special occasions only Patient Tobacco Use Status: Former Tobacco user Quit Date: 2020 Tobacco use type: Cigarette Cigarettes Per Day: 0 (quit 07/23/2020) Years Smoked: 10 e-Cigarette/Vaping Use: Never Used Substance Use Type: Marijuana service: No Current occupational status: disabled Meds Allergies Allergy/AdvReac Type Severity Reaction Status Date / Time No Known Allergies Allergy Verified 06/09/23 06:14 Active Medications: Current Medications Lactated Ringer's (Lr) 1,000 mls @ 100 mls/hr IVCONT .Q10H TRAN Last Admin: 06/09/23 06:55 Dose: 100 mls/hr Home Medications Medication Instructions Recorded Confirmed Last Taken Type venlafaxine 150 mg 1 cap PO BEDTIME 08/13/20 05/31/23 Unknown History capsule,extended release 24 hr Celebrate ang+D PO BID 07/21/21 05/24/23 06/09/23 History celebrate bariatric MVI PO DAILY 07/21/21 05/24/23 06/09/23 History cholecalciferol (vitamin D3) 25 25 mcg PO DAILY 03/04/23 05/31/23 06/09/23 History mcg (1,000 unit) capsule (Vitamin D3) ocrelizumab 30 mg/mL intravenous 600 mg IV [id number] 05/24/23 05/31/23 Unknown History solution (Ocrevus) omeprazole 20 mg capsule,delayed 20 mg PO DAILY 05/24/23 05/31/23 Unknown History release Exam Height,Weight and Vital Signs: Height 5 ft 4.5 in Weight 77.383 kg Last Vital Signs Temp 98.3 F 06/09/23 06:23 Pulse 85 06/09/23 06:23 Resp 16 06/09/23 06:23 BP 122/72 06/09/23 06:23 Pulse Ox 100 06/09/23 06:23 O2 Del Method Room Air 06/09/23 06:23 Pertinent Lab Results Pertinent Lab Results: Laboratory Tests 05/31/23 05/31/23 05/31/23 10:30 10:30 10:30 WBC 7.1 RBC 4.32 Hgb 13.5 Hct 40.1 MCV 92.8 MCH 31.3 MCHC 33.7 RDW 14.9 Plt Count 225 D MPV 10.3 Immature Gran % (Auto) 1.0 H Neut % (Auto) 61.7 Lymph % (Auto) 23.7 Kings % (Auto) 9.1 Eos % (Auto) 3.5 Baso % (Auto) 1.0 Lymph # (Auto) 1.7 Kings # (Auto) 0.6 Eos # (Auto) 0.3 Baso # (Auto) 0.1 Abs Immat Gran (auto) 0.07 H Absolute Neuts (auto) 4.4 Absolute Nucleated RBC 0.020 H Nucleated RBC % (auto) 0.3 H PT 10.8 L INR 0.9 APTT 29.8 Sodium 140 Potassium 3.9 Chloride 107 Carbon Dioxide 27 Anion Gap 10 L BUN 11 Creatinine 0.76 Estim Creat Clear Calc 90.7 Estimated GFR > 60 Random Glucose 93 Estimat Average Glucose 91 Hemoglobin A1c % 4.8 Calcium 9.2 Iron 68 TIBC 340 % Saturation 20 Unsat Iron Binding 272 Ferritin 30 Total Bilirubin 0.8 AST 23 ALT 30 Alkaline Phosphatase 73 C-Reactive Protein 0.14 Total Protein 7.4 Albumin 3.9 Triglycerides 70 Cholesterol 222 H LDL Cholesterol, Calc 139 H HDL Cholesterol 69 Vitamin A 43 Vitamin B1 <6 L Vitamin B12 935 H 25-OH Vitamin D Total 57.5 TSH 1.02 Urine Test Zinc 72 Blood Type A Positive Antibody Screen POSITIVE Antibody Identification Anti-M Antigen Identification E Antigen - NEGATIVE K Antigen - NEGATIVE S Antigen - NEGATIVE Crossmatch (AHG) See Detail 06/09/23 06:12 WBC RBC Hgb Hct MCV MCH MCHC RDW Plt Count MPV Immature Gran % (Auto) Neut % (Auto) Lymph % (Auto) Kings % (Auto) Eos % (Auto) Baso % (Auto) Lymph # (Auto) Kings # (Auto) Eos # (Auto) Baso # (Auto) Abs Immat Gran (auto) Absolute Neuts (auto) Absolute Nucleated RBC Nucleated RBC % (auto) PT INR APTT Sodium Potassium Chloride Carbon Dioxide Anion Gap BUN Creatinine Estim Creat Clear Calc Estimated GFR Random Glucose Estimat Average Glucose Hemoglobin A1c % Calcium Iron TIBC % Saturation Unsat Iron Binding Ferritin Total Bilirubin AST ALT Alkaline Phosphatase C-Reactive Protein Total Protein Albumin Triglycerides Cholesterol LDL Cholesterol, Calc HDL Cholesterol Vitamin A Vitamin B1 Vitamin B12 25-OH Vitamin D Total TSH Urine Test NEGATIVE Zinc Blood Type Antibody Screen Antibody Identification Antigen Identification Crossmatch (AHG) Airway Mallampati Class: II TM Dist: >3cm Neck ROM: Full Loose/Missing/Broken Teeth: Yes (Missing teeth top left back) Heart: RRR Lungs: CTAB Assessment and Plan Assessment Anesthesia Assessment: Anesthesia Plan Discussed and Chart Reviewed Final Anesthetic Review Family History of Problems with Anesthesia: No History of Problems with Anesthesia: No NPO: Yes ASA Class: III Final Preanesthetic Review: No Changes in Pt Med Stat, Meds/Allgs Chart Reviewed, Consent Obtained/Reviewed and Anes Risks/Benef Reviewed Patient Risk: Intermediate Procedure Risk: Intermediate Assessment/Block/Sedation in SS: Assess/Block/Sedation-SS Anesthetic Plan Anesthetic Plan: GA Disposition: Standard PACU
--- NOTE | 2023-06-09 07:44 | MHC.SHP ---
Pre-Procedural Eval Section A - 24 Hr Update-Section A only Date of Service: 06/09/23 The patient is an INPATIENT: No The patient has been examined within 24 hours of the surgical procedure. The History & Physical has been completed within 30 days and I have reviewed it.: Yes Section B - Complete if H&P > 30 days Chief Complaint: Excessive and redundant skin and subcutaneous tiss Relevant Family History (Specify if Yes): No Relevant Social History: None Present Medications: None Medical History: No relevant PMH History of Previous Operations: Relevant previous surgery/procedure and date(s) (laparoscopic sleeve gastrectomy) Allergies: Allergies Allergy/AdvReac Type Severity Reaction Status Date / Time No Known Allergies Allergy Verified 06/09/23 06:14 Review of Systems Sugical H&P ROS: Negative: Constitution, Cardiovascular, Respiratory, Neurological, Psychiatric, Hem-Onc, Allergic/Immunologic, Gastrointestinal, Genitourinary, Musculoskeletal, Integumentary, Endocrine and Eyes/Ears/Nose/Throat Exam Surgical H&P Exam: Normal: HEENT, Normal: Heart, Normal: Lungs, Normal: Extremities, Normal: Abdomen, Normal: Skin and Normal: Neurological Plan Diagnosis/Plan: Unchanged I have reviewed the history and physical and performed a pertinent physical examination on my patient. No changes have occurred unless specified. Time Spent With Patient Time: Total time managing care of this patient today ____ minutes.
--- NOTE | 2023-06-09 12:15 | P.BOP_ITS ---
Brief Operative Note Date of Service: 06/09/23 Pre-op diagnosis: Excess skin Post-op diagnosis: same Procedure: PROCEDURE: Bilateral brachioplasty and thighplasty INDICATION: This a 47 year old female who underwent laparoscopic sleeve gastr ectomy on 08/20/2020. She had an excellent result achieving a BMI of 28.3 kg/m2 with a total weight loss of 97.8lbs, or 36.9% of her TBWL. As a result, she has developed skin irritation and intetrigo in both upper arms and medial thighs. On exam she has extreme skin laxity due to massive weight loss and age with the upper arms 5 cm below the level of the triceps and friction between the?inner thighs. Bilateral brachioplasty and thighplasty was recommended.?Risks and complications were discussed with the patient including bleeding, infection, flap necrosis, asymmetry, dehiscence, seroma, VTE. The patient understood the risks and was in agreement to proceed with surgery. PROCEDURE: The incisions were appropriately marked at the preop area with the patient standing and laying down. After induction of general anesthesia a Gomez catheter and pneumatic compression devices were placed. The patient was prepped and draped in the usual sterile manner and the incisions were marked again and confirmed. In similar fashion both upper arms and thighs were also marked when the patient was standing. The upper arms were performed first. The skin was infiltrated with lidocaine and epinephrine. Skin was excised with the #15 blade. The anterior incision was made first. I did not commit to the posterior incision until dissection was completed and I could assess the appropriate location for the posterior incision to prevent excessive tension. Cautery was used to separate the skin from subcutaneous tissues. Careful attention was paid to make sure that the plain of excision was superficial as close to the skin as possible and superior to the fascia. The right upper arm skin was 28 cm x 6 cm and the left 30 cm x 6 cm. Skin was closed in two layers using interrupted 3.0 Monocryl sutures for the d ermis and 4.0 subcuticular Monocryl suture for the skin. In a similar manner the thigh incisions were appropriately marked. The legs were flexed at the knees and abducted at the hip level.?The anterior incision was made first. I did not commit to the posterior incision until dissection was completed and I could assess the appropriate location for the posterior incision to prevent excessive tension. Cautery was used to separate the skin from subcutaneous tissues. Careful attention was paid to make sure that the plain of excision was superficial as close to the skin as possible and superior to the fascia. The right thigh skin was 27.5 cm x 9 cm and the left 29 cm x 10 cm. Skin was closed in two layers using interrupted 3.0 Monocryl sutures for the dermis and 4.0 subcuticular Monocryl suture for the skin. The patient was extubated and was transferred in a stable condition at the recovery room. I was present and performed all steps of the procedure. There were no residents available to assist. Mr. Jameel Medley PA-C was the community relations assistant. Osvaldo Fountain MD, PhD, FACS Surgeon: Zi Fountain MD Anesthesia: GETA and local Was an General Sales Manager used for this Procedure?: Yes General Sales Manager: Jameel Medley Estimated blood loss (mL): 10 IV fluids (mL): 1,500 Urine output (mL): 1,000 Pathology: other (Bilateral upper arm and thigh skins) Condition: stable Disposition: PACU
[2023-06-09] MEDS: ondansetron HCL 4 MG/2 ML VIAL IVPUSH (15:39)
== END 2023-06-09 16:14 | disposition home or self-care (01) ==
PROVIDERS: Anesthesiology; PCP Internal Medicine; Visit Provider Surgery
PROC: (CPT 15836; principal; 2023-06-09 07:30)
PROC: (CPT 15836; 2023-06-09 07:30)
DX: L98.7 Excessive and redundant skin and subcutaneous tissue (principal); K91.2 Postsurgical malabsorption, not elsewhere classified; M79.3 Panniculitis, unspecified; R21 Rash and other nonspecific skin eruption; L30.4 Erythema intertrigo; Z90.3 Acquired absence of stomach [part of]; R63.4 Abnormal weight loss; Z68.28 Body mass index [BMI] 28.0-28.9, adult; G35 Multiple sclerosis; I10 Essential (primary) hypertension; Z79.899 Other long term (current) drug therapy; Z90.49 Acquired absence of other specified parts of digestive tract; Z87.891 Personal history of nicotine dependence
CPT/HCPCS: 15836; 15832; 36415; 80053; 80061; 81025; 82306; 82607; 82728; 83036; 83540; 84425; 84443; 84590; 84630; 85025; 85610; 85730; 86140; 86850; 86870; 86900; 86901; 86905; 86920; 86922; 88304; 93005; J0131; J0690; J1100; J1170; J2250; J2405; J2704; J3010

== ENCOUNTER → 2023-06-09 05:50 | Outpatient (BNV) | payer MEDICARE, MEDICAID, SELFPAY | PROVIDERS: PCP Internal Medicine; Visit Provider Surgery | DX: L98.7 Excessive and redundant skin and subcutaneous tissue (principal); Z90.3 Acquired absence of stomach [part of]; Z98.84 Bariatric surgery status | CPT/HCPCS: 15832; 15836 ==

== ENCOUNTER 2023-06-15 09:55 | Outpatient (AMB) | payer MEDICARE, MEDICAID, SELFPAY ==
--- NOTE | 2023-06-15 09:57 | A.OFFVIS_ITS ---
Intake VS Expanded 06/15/23 10:29 BP 144/88 H Blood Pressure Location Rt brachial Blood Pressure Position Sitting Pulse 81 Pulse Source Pulse Oximeter Temp 97.2 F Temperature Source Temporal Artery Scan Pulse Oximetry 100 Oxygen Delivery Method Room Air Intake Visit Reasons: (OV) 6 Days PO Brachioplasty/Thighplasty 06/09/23 Allergies No Known Allergies Allergy (Verified 06/15/23 10:29) HPI HPI Comments History of Present Illness Details Patient is a very pleasant 47-year-old female who underwent bilateral brachioplasty and thigh plasty on 06/09/2023. She states the she is continuing to follow the meal plan as outlined by Dr. Fountain as well as the antibiotics. She is reporting no pain and no drainage from any of the incisions. She has no complaints at today's visit. [facility] Medical History Steatosis, liver Liver fibrosis Pain COVID-19 vaccine series completed Numbness Smoking Vitamin A deficiency Vitamin B12 deficiency Vitamin D deficiency Vitamin B1 deficiency Abnormal EKG Multiple sclerosis GERD (gastroesophageal reflux disease) Hypertension Morbid obesity Surgical History H/O hernia repair Hx of colonoscopy (~03/31/23) History of sleeve gastrectomy Hx of cholecystectomy Hx of section Family History Mother No problems noted. Father No problems noted. Sister No problems noted. Son No problems noted. Daughter No problems noted. Social History Household Members: Children Household Members Other:: adult children Caregiver staying overnight: No Housing: Apartment Are you a primary palliative care nurse to a significant other at home: No Do you presently have visiting nurse or other home services: No 75 years or older and lives alone: No Alcohol intake: current Alcohol intake frequency: holidays/special occasions only Patient Tobacco Use Status: Former Tobacco user Quit Date: 2020 Tobacco use type: Cigarette Cigarettes Per Day: 0 (quit 07/23/2020) Years Smoked: 10 e-Cigarette/Vaping Use: Never Used Substance Use Type: Marijuana service: No Current occupational status: disabled Physical Exam Vital Signs: Last Vital Signs Temp 97.2 F 06/15/23 10:29 Pulse 81 06/15/23 10:29 BP 144/88 H 06/15/23 10:29 Pulse Ox 100 06/15/23 10:29 Oxygen Delivery Method Room Air 06/15/23 10:29 Skin Other: All incisions have ecchymosis without evidence of dehiscence. No signs or symptoms of infection. Assessment & Plan Assessment & Plan (1) Excess skin: Code(s): L98.7 - Excessive and redundant skin and subcutaneous tissue Plan: Status post bilateral brachioplasty and thigh plasty on 06/09/2023. Patient is doing very well. She has no complaints. All incisions are healing nicely. She will continue her current antibiotics and meal plan as outlined by Dr. Fountain. Return to the office in 1 week. Coding Level of Care Code Global (68237) Diagnoses Excess skin L98.7
[2023-06-15 10:29] VITALS: BP 144/88; PULSE 81; TEMP 36.2; O2SAT 100
== END 2023-06-15 10:56 | disposition home or self-care (01) ==
PROVIDERS: PCP Internal Medicine; Visit Provider Physician Assistant Surgical
DX: L98.7 Excessive and redundant skin and subcutaneous tissue (principal)
CPT/HCPCS: 99024

== ENCOUNTER → 2023-06-15 09:55 | Outpatient (BNVA) | payer MEDICARE, MEDICAID, SELFPAY | PROVIDERS: PCP Internal Medicine; Visit Provider Physician Assistant Surgical | DX: Z48.817 Encounter for surgical aftercare following surgery on the skin and subcutaneous tissue (principal) | CPT/HCPCS: 99212 ==

== ENCOUNTER 2023-06-23 12:46 | Outpatient (AMB) | payer MEDICARE, MEDICAID, SELFPAY ==
--- NOTE | 2023-06-23 12:51 | A.OFFVIS_ITS ---
Intake VS Expanded 06/23/23 13:22 BP 145/72 H Blood Pressure Location Rt brachial Blood Pressure Position Sitting Pulse 73 Pulse Source Pulse Oximeter Temp 96.9 F Temperature Source Tympanic Pulse Oximetry 100 Oxygen Delivery Method Room Air Intake Visit Reasons: (OV) PO Brachioplasty/Thighplasty 06/09/23 Allergies No Known Allergies Allergy (Verified 06/15/23 10:29) HPI HPI Comments History of Present Illness Details Patient is a very pleasant 47-year-old female who returns to the office today in follow-up. She underwent brachioplasty and thigh plasty on 06/09/2023. She states that she is doing very well overall. She continues both antibiotics and meal plan as recommended by Dr. Fountain. She offers no complaints at today's visit. [facility] Medical History Steatosis, liver Liver fibrosis Pain COVID-19 vaccine series completed Numbness Smoking Vitamin A deficiency Vitamin B12 deficiency Vitamin D deficiency Vitamin B1 deficiency Abnormal EKG Multiple sclerosis GERD (gastroesophageal reflux disease) Hypertension Morbid obesity Surgical History H/O hernia repair Hx of colonoscopy (~03/31/23) History of sleeve gastrectomy Hx of cholecystectomy Hx of section Family History Mother No problems noted. Father No problems noted. Sister No problems noted. Son No problems noted. Daughter No problems noted. Social History Household Members: Children Household Members Other:: adult children Caregiver staying overnight: No Housing: Apartment Are you a primary special needs child caregiver to a significant other at home: No Do you presently have visiting nurse or other home services: No 75 years or older and lives alone: No Alcohol intake: current Alcohol intake frequency: holidays/special occasions only Patient Tobacco Use Status: Former Tobacco user Quit Date: 2020 Tobacco use type: Cigarette Cigarettes Per Day: 0 (quit 07/23/2020) Years Smoked: 10 e-Cigarette/Vaping Use: Never Used Substance Use Type: Marijuana service: No Current occupational status: disabled Physical Exam Skin Other: Incisions of bilateral arms and thighs are healing nicely without evidence of dehiscence. Assessment & Plan Assessment & Plan (1) Excess skin: Code(s): L98.7 - Excessive and redundant skin and subcutaneous tissue Plan: Status post brachioplasty and thigh plasty all healing well. Continue current treatment plans. Return to the office in 1 week. Coding Level of Care Code Global (73713) Diagnoses Excess skin L98.7
[2023-06-23 13:22] VITALS: BP 145/72; PULSE 73; TEMP 36.1; O2SAT 100
== END 2023-06-23 13:22 | disposition home or self-care (01) ==
PROVIDERS: PCP Internal Medicine; Visit Provider Physician Assistant Surgical
DX: L98.7 Excessive and redundant skin and subcutaneous tissue (principal)
CPT/HCPCS: 99024

== ENCOUNTER → 2023-06-23 12:46 | Outpatient (BNVA) | payer MEDICARE, MEDICAID, SELFPAY | PROVIDERS: PCP Internal Medicine; Visit Provider Physician Assistant Surgical | DX: Z48.817 Encounter for surgical aftercare following surgery on the skin and subcutaneous tissue (principal); Z98.890 Other specified postprocedural states | CPT/HCPCS: 99212 ==

== ENCOUNTER 2023-07-02 11:00 | Outpatient (AMB) | payer MEDICARE, MEDICAID, SELFPAY ==
--- NOTE | 2023-07-02 11:01 | A.OFFVIS_ITS ---
Intake VS Expanded 07/02/23 11:12 BP 167/82 H Blood Pressure Location Rt brachial Blood Pressure Position Sitting Pulse 80 Pulse Source Pulse Oximeter Temp 96.4 F L Temperature Source Tympanic Pulse Oximetry 99 Oxygen Delivery Method Room Air Intake Visit Reasons: (OV) PO Brachioplasty/Thighplasty 06/09/23 Allergies No Known Allergies Allergy (Verified 07/02/23 11:12) HPI HPI Comments History of Present Illness Details Pleasant 47-year-old female returns the office today in follow-up. She is status post brachioplasty and thigh plasty performed on 06/09/2023. She is doing extremely well and her incisions are all healing very nicely. She jelly nues using premier protein, 1 scoop in 8 oz of unsweetened almond milk x 2 and a meal with 5 forks of protein in 5 forks of vegetables. She has no complaints today. [facility] Medical History Steatosis, liver Liver fibrosis Pain COVID-19 vaccine series completed Numbness Smoking Vitamin A deficiency Vitamin B12 deficiency Vitamin D deficiency Vitamin B1 deficiency Abnormal EKG Multiple sclerosis GERD (gastroesophageal reflux disease) Hypertension Morbid obesity Surgical History H/O hernia repair Hx of colonoscopy (~03/31/23) History of sleeve gastrectomy Hx of cholecystectomy Hx of section Family History Mother No problems noted. Father No problems noted. Sister No problems noted. Son No problems noted. Daughter No problems noted. Social History Household Members: Children Household Members Other:: adult children Caregiver staying overnight: No Housing: Apartment Are you a primary manager medicare marketing to a significant other at home: No Do you presently have visiting nurse or other home services: No 75 years or older and lives alone: No Alcohol intake: current Alcohol intake frequency: holidays/special occasions only Patient Tobacco Use Status: Former Tobacco user Quit Date: 2020 Tobacco use type: Cigarette Cigarettes Per Day: 0 (quit 07/23/2020) Years Smoked: 10 e-Cigarette/Vaping Use: Never Used Substance Use Type: Marijuana service: No Current occupational status: disabled Physical Exam Vital Signs: Last Vital Signs Temp 96.4 F L 07/02/23 11:12 Pulse 80 07/02/23 11:12 BP 167/82 H 07/02/23 11:12 Pulse Ox 99 07/02/23 11:12 Oxygen Delivery Method Room Air 07/02/23 11:12 Skin Other: All incisions are healing very nicely. No evidence of dehiscence or infection. Assessment & Plan Assessment & Plan (1) S/P brachioplasty: Code(s): Z98.890 - Other specified postprocedural states Plan: Patient is doing very well. Continue to monitor incisions. Continue meal plan per Dr. Fountain. (2) S/P thighplasty: Code(s): Z98.890 - Other specified postprocedural states Plan: As above Coding Level of Care Code Global (48127) Diagnoses S/P brachioplasty Z98.890 S/P thighplasty Z98.890
[2023-07-02 11:12] VITALS: BP 167/82; PULSE 80; TEMP 35.8; O2SAT 99
== END 2023-07-02 11:44 | disposition home or self-care (01) ==
PROVIDERS: PCP Internal Medicine; Visit Provider Physician Assistant Surgical
DX: Z98.890 Other specified postprocedural states (principal)
CPT/HCPCS: 99024

== ENCOUNTER → 2023-07-02 11:00 | Outpatient (BNVA) | payer MEDICARE, MEDICAID, SELFPAY | PROVIDERS: PCP Internal Medicine; Visit Provider Physician Assistant Surgical | DX: Z48.89 Encounter for other specified surgical aftercare (principal) | CPT/HCPCS: 99212 ==

== ENCOUNTER 2023-07-20 11:21 | Outpatient (AMB) | payer MEDICARE, MEDICAID, SELFPAY ==
--- NOTE | 2023-07-20 11:24 | MHC.OFFVISWM ---
Intake VS Expanded 07/20/23 11:32 BP 146/90 H Blood Pressure Location Rt brachial Blood Pressure Position Sitting Pulse 79 Pulse Source Pulse Oximeter Temp 96.3 F L Temperature Source Tympanic Pulse Oximetry 94 Oxygen Delivery Method Room Air Intake Visit Reasons: (OV) PO Brachioplasty/Thighplasty 06/09/23 Allergies No Known Allergies Allergy (Verified 07/02/23 11:12) HPI HPI Comments History of Present Illness Details Pleasant 47-year-old female returns the office today in follow-up. She is status post brachioplasty and thigh plasty performed on 06/09/2023. She is doing extremely well and her incisions are all healing very nicely. She continues using premier protein, 1 scoop in 8 oz of unsweetened almond milk x 2 and a meal with 5 forks of protein in 5 forks of vegetables. She has no complaints today. [facility] Medical History Steatosis, liver Liver fibrosis Pain COVID-19 vaccine series completed Numbness Smoking Vitamin A deficiency Vitamin B12 deficiency Vitamin D deficiency Vitamin B1 deficiency Abnormal EKG Multiple sclerosis GERD (gastroesophageal reflux disease) Hypertension Morbid obesity Surgical History H/O hernia repair Hx of colonoscopy (~03/31/23) History of sleeve gastrectomy Hx of cholecystectomy Hx of section Family History Mother No problems noted. Father No problems noted. Sister No problems noted. Son No problems noted. Daughter No problems noted. Social History Household Members: Children Household Members Other:: adult children Caregiver staying overnight: No Housing: Apartment Are you a primary director long term care to a significant other at home: No Do you presently have visiting nurse or other home services: No 75 years or older and lives alone: No Alcohol intake: current Alcohol intake frequency: holidays/special occasions only Patient Tobacco Use Status: Former Tobacco user Quit Date: 2020 Tobacco use type: Cigarette Cigarettes Per Day: 0 (quit 07/23/2020) Years Smoked: 10 e-Cigarette/Vaping Use: Never Used Substance Use Type: Marijuana service: No Current occupational status: disabled Physical Exam Vital Signs: Last Vital Signs Temp 96.3 F L 07/20/23 11:32 Pulse 79 07/20/23 11:32 BP 146/90 H 07/20/23 11:32 Pulse Ox 94 07/20/23 11:32 Oxygen Delivery Method Room Air 07/20/23 11:32 Skin Other: Incisions all healing nicely. Assessment & Plan Assessment & Plan (1) S/P brachioplasty: Code(s): Z98.890 - Other specified postprocedural states Plan: As well as thigh plasty on 06/09/2023. Patient may stop her antibiotics. She may resume treadmill carefully. Continue current meal plan as above and return to the office in 2 weeks. Coding Level of Care Code Global (95442) Diagnoses S/P brachioplasty Z98.890
[2023-07-20 11:32] VITALS: BP 146/90; PULSE 79; TEMP 35.7; O2SAT 94
== END 2023-07-20 12:24 | disposition home or self-care (01) ==
PROVIDERS: PCP Internal Medicine; Visit Provider Physician Assistant Surgical
DX: Z98.890 Other specified postprocedural states (principal)
CPT/HCPCS: 99024

== ENCOUNTER → 2023-07-20 11:21 | Outpatient (BNVA) | payer MEDICARE, MEDICAID, SELFPAY | PROVIDERS: PCP Internal Medicine; Visit Provider Physician Assistant Surgical | DX: Z48.817 Encounter for surgical aftercare following surgery on the skin and subcutaneous tissue (principal); Z98.890 Other specified postprocedural states | CPT/HCPCS: 99212 ==

== ENCOUNTER 2023-08-09 08:52 | Outpatient (AMB) | payer MEDICARE, MEDICAID, SELFPAY ==
--- NOTE | 2023-08-09 09:01 | MHC.OFFVISWM ---
VS Expanded 08/09/23 09:10 BP 148/92 H Blood Pressure Location Rt brachial Blood Pressure Position Sitting Pulse 82 Pulse Source Pulse Oximeter Temp 97.8 F Temperature Source Temporal Artery Scan Pulse Oximetry 100 Oxygen Delivery Method Room Air Intake Visit Reasons: (OV) PO Brachioplasty/Thighplasty 06/09/23 Allergies No Known Allergies Allergy (Verified 08/09/23 09:11) HPI Comments Details: Patient is a very pleasant 47-year-old female who returns to the office today in follow-up. She is status post brachioplasty and thigh plasty performed on 06/09/2023. Overall, she is very happy with the results. She denies any significant complaints. She continues to follow the meal plan as directed by Dr. Fountain. She has returned to the gym doing light cardio activity with the treadmill. [facility] Medical History Steatosis, liver Liver fibrosis Pain COVID-19 vaccine series completed Numbness Smoking Vitamin A deficiency Vitamin B12 deficiency Vitamin D deficiency Vitamin B1 deficiency Abnormal EKG Multiple sclerosis GERD (gastroesophageal reflux disease) Hypertension Morbid obesity Surgical History H/O hernia repair Hx of colonoscopy (~03/31/23) History of sleeve gastrectomy Hx of cholecystectomy Hx of section Family History Mother No problems noted. Father No problems noted. Sister No problems noted. Son No problems noted. Daughter No problems noted. Social History Household Members: Children Household Members Other:: adult children Caregiver staying overnight: No Housing: Apartment Are you a primary career and transition teacher to a significant other at home: No Do you presently have visiting nurse or other home services: No 75 years or older and lives alone: No Alcohol intake: current Alcohol intake frequency: holidays/special occasions only Patient Tobacco Use Status: Former Tobacco user Quit Date: 2020 Tobacco use type: Cigarette Cigarettes Per Day: 0 (quit 07/23/2020) Years Smoked: 10 e-Cigarette/Vaping Use: Never Used Substance Use Type: Marijuana service: No Current occupational status: disabled Physical Exam Vital Signs: Last Vital Signs Temp 97.8 F 08/09/23 09:10 Pulse 82 08/09/23 09:10 BP 148/92 H 08/09/23 09:10 Pulse Ox 100 08/09/23 09:10 Oxygen Delivery Method Room Air 08/09/23 09:10 Skin Other: Bilateral upper and lower extremity incisions are healing very nicely. No evidence of infection or dehiscence. Assessment & Plan Assessment & Plan (1) S/P brachioplasty: Code(s): Z98.890 - Other specified postprocedural states Category: Surgical Plan: Bilateral brachioplasty and thigh plasty performed on 06/09/2023, healing all very nicely. Continue current meal plan and follow-up in the office in 1 month.
[2023-08-09 09:10] VITALS: BP 148/92; PULSE 82; TEMP 36.6; O2SAT 100
== END 2023-08-09 09:28 | disposition home or self-care (01) ==
PROVIDERS: PCP Internal Medicine; Visit Provider Physician Assistant Surgical
DX: Z98.890 Other specified postprocedural states (principal)
CPT/HCPCS: 99024

== ENCOUNTER → 2023-08-09 08:52 | Outpatient (BNVA) | payer MEDICARE, MEDICAID, SELFPAY | PROVIDERS: PCP Internal Medicine; Visit Provider Physician Assistant Surgical | DX: Z48.817 Encounter for surgical aftercare following surgery on the skin and subcutaneous tissue (principal); Z98.890 Other specified postprocedural states | CPT/HCPCS: 99212 ==

== ENCOUNTER 2023-10-15 10:25 | Outpatient (AMB) | payer MEDICARE, MEDICAID, SELFPAY ==
--- NOTE | 2023-10-15 10:26 | MHC.OFFVISWM ---
VS Expanded 10/15/23 10:33 BP 144/90 H Blood Pressure Location Rt brachial Blood Pressure Position Sitting Pulse 99 Pulse Source Pulse Oximeter Temp 96.2 F L Pulse Oximetry 100 Oxygen Delivery Method Room Air Intake Visit Reasons: (OV) PO Brachioplasty/Thighplasty 06/09/23 Allergies No Known Allergies Allergy (Verified 10/15/23 10:34) HPI Comments Details: Patient is a very pleasant 47-year-old female who is status post brachioplasty and thigh plasty performed on 06/09/2023. She additionally has history of sleeve gastrectomy performed on 08/20/2020. Overall, she is very satisfied with the results of her recent skin removal surgery. She has healed nicely. She has had a recent change in her MS medication. She is being followed by a new provider. She has recently started walking and is enjoying her increased activity. She continues to follow the meal plan as directed by Dr. Fountain. She does intermittently need to use clotrimazole for excess skin of her abdomen, hanging low, she is trying to apply a barrier between the skin folds which has been somewhat helpful. [facility] Medical History Steatosis, liver Liver fibrosis Pain COVID-19 vaccine series completed Numbness Smoking Vitamin A deficiency Vitamin B12 deficiency Vitamin D deficiency Vitamin B1 deficiency Abnormal EKG Multiple sclerosis GERD (gastroesophageal reflux disease) Hypertension Morbid obesity Surgical History H/O hernia repair Hx of colonoscopy (~03/31/23) History of sleeve gastrectomy Hx of cholecystectomy Hx of section Family History Mother No problems noted. Father No problems noted. Sister No problems noted. Son No problems noted. Daughter No problems noted. Social History Household Members: Children Household Members Other:: adult children Caregiver staying overnight: No Housing: Apartment Are you a primary career development coordinator to a significant other at home: No Do you presently have visiting nurse or other home services: No 75 years or older and lives alone: No Alcohol intake: current Alcohol intake frequency: holidays/special occasions only Patient Tobacco Use Status: Former Tobacco user Tobacco use type: Cigarette Cigarettes Per Day: 0 (quit 07/23/2020) Years Smoked: 10 e-Cigarette/Vaping Use: Never Used Substance Use Type: Marijuana service: No Current occupational status: disabled Physical Exam Vital Signs: Last Vital Signs Temp 96.2 F L 10/15/23 10:33 Pulse 99 10/15/23 10:33 BP 144/90 H 10/15/23 10:33 Pulse Ox 100 10/15/23 10:33 Oxygen Delivery Method Room Air 10/15/23 10:33 Skin Other: Bilateral arm and leg incisions have healed nicely. Abdominal pannus grade 2 without active rash Assessment & Plan Assessment & Plan (1) S/P brachioplasty: Code(s): Z98.890 - Other specified postprocedural states Category: Surgical Plan: Healed nicely. May return to normal activity without restriction. She certainly may apply moisturizer to her scars if she wishes. (2) S/P thighplasty: Code(s): Z98.890 - Other specified postprocedural states Category: Surgical Plan: Healed nicely. May return to normal activity without restriction. She certainly may apply moisturizer to her scars if she wishes. (3) S/P laparoscopic sleeve gastrectomy: Code(s): Z98.84 - Bariatric surgery status Category: Surgical Plan: Continue current meal plan as directed by Dr. Fountain. Follow-up with [facility]
[2023-10-15 10:33] VITALS: BP 144/90; PULSE 99; TEMP 35.7; O2SAT 100
== END 2023-10-15 10:55 | disposition home or self-care (01) ==
PROVIDERS: PCP Internal Medicine; Visit Provider Physician Assistant Surgical
DX: L98.7 Excessive and redundant skin and subcutaneous tissue (principal); Z98.84 Bariatric surgery status
CPT/HCPCS: 99213

== ENCOUNTER → 2023-10-15 10:25 | Outpatient (BNVA) | payer MEDICARE, MEDICAID, SELFPAY | PROVIDERS: PCP Internal Medicine; Visit Provider Physician Assistant Surgical | DX: Z98.890 Other specified postprocedural states (principal); Z98.84 Bariatric surgery status | CPT/HCPCS: 99212 ==

== ENCOUNTER 2023-11-23 10:09 | Outpatient (AMB) | payer MEDICARE, MEDICAID, SELFPAY ==
--- NOTE | 2023-11-23 10:19 | A.OFFVIS_ITS ---
VS Expanded 11/23/23 10:36 BP 140/69 H Blood Pressure Location Rt brachial Blood Pressure Position Sitting Pulse 91 Pulse Source Pulse Oximeter Temp 97.5 F Temperature Source Tympanic Pulse Oximetry 96 Oxygen Delivery Method Room Air Height 5 ft 4.5 in Weight 188 lb 12.8 oz BMI 31.9 Body Fat % 37.7 Body Fat Mass 71.2 Fat Free Mass 117.6 Visceral Fat Rating 9.0 Body Water % 44.3 Body Water Mass 83.6 Muscle Mass/Score 111.6 Basal Metabolic Rate/Score 1,606 Intake Visit Reasons: (OV) PO LSG 08/20/20 Allergies No Known Allergies Allergy (Verified 11/23/23 10:22) Medication List - Last Reconciled 11/23/23 by CATHERINE Mayberry [celebrate bariatric MVI PO DAILY] [Celebrate ang+D PO BID] cholecalciferol (vitamin D3) (Vitamin D3) 25 mcg PO DAILY clotrimazole 1% 1 appl topical BID docusate sodium (Colace) 100 mg PO DAILY ocrelizumab (Ocrevus) 600 mg IV [id number] omeprazole 20 mg PO DAILY thiamine HCl (vitamin B1) 100 mg PO DAILY venlafaxine ER 1 cap PO BEDTIME HPI Comments Details: This?is a?48?yo female who is s/p LSG 08/20/2020. Also s/p thighplasty and brachioplasty 05/2023. Presents for 3 year 3 month post op visit. Has gained about 20lbs since prior to skin removal surgery. No complaints of nausea, emesis, abdominal pain or reflux, or constipation. Pt reports changing doctors for her MS recently, had medications changed, but symptoms worsened and she wanted to change back to what she was doing before. Always tired, no energy, insomnia. Has no help at home. No longer on phentermine. Present meal plan includes: 2 Premier shakes 1 scoop each, 1 Built or Atkins bar, 1 meal sometimes will get premade shakes Exercise routine includes: has numbness on right side, pain from MS, difficult to exercise- tries to use home bicycle which she tolerates, has exercise ball and resistance bands PFSH Medical History Steatosis, liver Liver fibrosis Pain COVID-19 vaccine series completed Numbness Smoking Vitamin A deficiency Vitamin B12 deficiency Vitamin D deficiency Vitamin B1 deficiency Abnormal EKG Multiple sclerosis GERD (gastroesophageal reflux disease) Hypertension Morbid obesity Surgical History H/O hernia repair Hx of colonoscopy (~03/31/23) History of sleeve gastrectomy Hx of cholecystectomy Hx of section Family History Mother No problems noted. Father No problems noted. Sister No problems noted. Son No problems noted. Daughter No problems noted. Social History Household Members: Children Household Members Other:: adult children Caregiver staying overnight: No Housing: Apartment Are you a primary associate director career services to a significant other at home: No Do you presently have visiting nurse or other home services: No 75 years or older and lives alone: No Alcohol intake: current Alcohol intake frequency: holidays/special occasions only Patient Tobacco Use Status: Former Tobacco user Tobacco use type: Cigarette Cigarettes Per Day: 0 (quit 07/23/2020) Years Smoked: 10 e-Cigarette/Vaping Use: Never Used Substance Use Type: Marijuana service: No Current occupational status: disabled Assessment & Plan Assessment & Plan (1) S/P thighplasty: Code(s): Z98.890 - Other specified postprocedural states Category: Surgical (2) S/P brachioplasty: Code(s): Z98.890 - Other specified postprocedural states Category: Surgical (3) Obesity: Code(s): E66.9 - Obesity, unspecified Category: Medical (4) S/P laparoscopic sleeve gastrectomy: Code(s): Z98.84 - Bariatric surgery status Category: Surgical Plan If using Premier premade shakes substitute 1 shake for both 1 scoop shakes. Goal 75g protein per day. Pt to exercise as much as able with goal 2000cal/week. RTC 2 months. I spent a total of 30 minutes reviewing/updating records, examining the patient and counseling the patient on weight management as detailed above.
[2023-11-23 10:36] VITALS: BP 140/69; PULSE 91; TEMP 36.4; O2SAT 96; BMI 31.9
== END 2023-11-23 10:55 | disposition home or self-care (01) ==
PROVIDERS: PCP Internal Medicine; Visit Provider Physician Assistant Surgical
DX: E66.9 Obesity, unspecified (principal); Z68.31 Body mass index [BMI] 31.0-31.9, adult; Z90.3 Acquired absence of stomach [part of]; Z98.84 Bariatric surgery status
CPT/HCPCS: 99214; G2211

== ENCOUNTER → 2023-11-23 10:09 | Outpatient (BNVA) | payer MEDICARE, MEDICAID, SELFPAY | PROVIDERS: PCP Internal Medicine; Visit Provider Physician Assistant Surgical | DX: E66.9 Obesity, unspecified (principal); Z98.890 Other specified postprocedural states; Z98.84 Bariatric surgery status; Z68.31 Body mass index [BMI] 31.0-31.9, adult | CPT/HCPCS: 99212 ==

== ENCOUNTER 2024-02-14 11:05 | Outpatient (AMB) | payer MEDICARE, MEDICAID, SELFPAY ==
--- NOTE | 2024-02-14 11:02 | MHC.OFFVISWM ---
VS Expanded 02/14/24 11:12 Height 5 ft 4.5 in Weight 188 lb BMI 31.8 Intake Visit Reasons: (TV) PO LSG 08/20/20 Allergies No Known Allergies Allergy (Verified 11/23/23 10:22) Medication List - Last Reconciled 02/14/24 by CATHERINE Mayberry [celebrate bariatric MVI PO DAILY] [Celebrate ang+D PO BID] cholecalciferol (vitamin D3) (Vitamin D3) 25 mcg PO DAILY clotrimazole 1% 1 appl topical BID docusate sodium 100 mg PO DAILY ocrelizumab (Ocrevus) 600 mg IV [id number] omeprazole 20 mg PO DAILY thiamine HCl (vitamin B1) 100 mg PO DAILY venlafaxine ER 1 cap PO BEDTIME HPI Comments Details: This?is a?48?yo female who is s/p LSG 08/20/2020. Also s/p thighplasty and brachioplasty 05/2023. Presents for 3.5 year post op visit. No complaints of nausea, emesis, abdominal pain or reflux, or constipation. Weight same since last visit. At last visit had MS medications changed, but symptoms worsened and she wanted to change back to what she was doing before. Always tired, no energy, insomnia. Present meal plan includes: 2 Premier shakes 1 scoop each, 1 Built or Atkins bar, 1 meal sometimes will get premade shakes- can sub 1 premade shake for both powdered shakes changed to Atkins Strong shakes Exercise routine includes: has numbness on right side, pain from MS, difficult to exercise- tries to use home bicycle which she tolerates and has been trying to add more time, up to 45 minutes, has exercise ball and resistance bands PFSH Medical History Steatosis, liver Liver fibrosis Pain COVID-19 vaccine series completed Numbness Smoking Vitamin A deficiency Vitamin B12 deficiency Vitamin D deficiency Vitamin B1 deficiency Abnormal EKG Multiple sclerosis GERD (gastroesophageal reflux disease) Hypertension Morbid obesity Surgical History H/O hernia repair Hx of colonoscopy (~03/31/23) History of sleeve gastrectomy Hx of cholecystectomy Hx of section Family History Mother No problems noted. Father No problems noted. Sister No problems noted. Son No problems noted. Daughter No problems noted. Social History (Reviewed 08/09/23 @ 09:11 by Carina Rehman [facility]) Household Members: Children Household Members Other:: adult children Caregiver staying overnight: No Housing: Apartment Are you a primary clinical care leader to a significant other at home: No Do you presently have visiting nurse or other home services: No 75 years or older and lives alone: No Alcohol intake: current Alcohol intake frequency: holidays/special occasions only Patient Tobacco Use Status: Former Tobacco user Tobacco use type: Cigarette Cigarettes Per Day: 0 (quit 07/23/2020) Years Smoked: 10 e-Cigarette/Vaping Use: Never Used Substance Use Type: Marijuana service: No Current occupational status: disabled Telehealth Telehealth Telehealth Platform: Telephone Location of provider rendering services: other Location of patient: address on file Patient Identification confirmed using: Name, : Yes Telehealth method: voice only Patient verbally consented to treatment: Yes Patient verbally consented to billing insurance company: Yes Patient informed of any privacy concerns related to visit: Yes Minutes spent on Phone/Video with Pt.: 18 Assessment & Plan Assessment & Plan (1) Obesity: Code(s): E66.9 - Obesity, unspecified Category: Medical (2) S/P laparoscopic sleeve gastrectomy: Code(s): Z98.84 - Bariatric surgery status Category: Surgical (3) S/P brachioplasty: Code(s): Z98.890 - Other specified postprocedural states Category: Surgical (4) S/P thighplasty: Code(s): Z98.890 - Other specified postprocedural states Category: Surgical Plan Gave pt the option to transition back to a shake/bar based plan to help with weight loss. Also discussed the possibility that she has gained muscle and lost fat, and that is why her weight has not changed much. She will charge her body composition scale and take measurements. Goal 75-80g protein/day. Can try 1 30g shake and 3 bars, or 2 30g shakes and 1 bar. RTC 4 months, will be due for labs at next visit. I spent a total of 30 minutes reviewing/updating records, examining the patient and counseling the patient on weight management as detailed above.
[2024-02-14 11:12] VITALS: BMI 31.8
== END 2024-02-14 11:35 | disposition home or self-care (01) ==
LOC: HO.HBS 11:05
PROVIDERS: PCP Internal Medicine; Visit Provider Physician Assistant Surgical
DX: E66.811 Obesity, class 1 (principal); Z68.31 Body mass index [BMI] 31.0-31.9, adult; Z90.3 Acquired absence of stomach [part of]; Z98.84 Bariatric surgery status
CPT/HCPCS: 98967

== ENCOUNTER → 2024-02-14 11:05 | Outpatient (BNVA) | payer MEDICARE, MEDICAID, SELFPAY | PROVIDERS: PCP Internal Medicine; Visit Provider Physician Assistant Surgical ==

== ENCOUNTER 2024-10-11 15:23 | Outpatient (AMB) | payer MEDICARE, MEDICAID, SELFPAY ==
--- NOTE | 2024-10-11 15:32 | A.OFFVIS_ITS ---
Vital Signs 10/11/24 15:39 Weight 211 lb BP 169/77 H Blood Pressure Location Rt femoral Position Sitting Respiration 18 Pulse 112 H Pulse Source Pulse Oximeter Pulse Oximetry (%) 100 Oxygen Delivery Method Room Air Intake Visit Reasons: Multiple Sclerosis Ribbon Blocker Required: No Allergies No Known Allergies Allergy (Verified 10/11/24 15:43) HPI Comments Details: Conchita is very pleasant 48 years old female who presents in my office with complains on severe pain on the lower back more to the right as well as severe pain in the right hand and right forearm. Reports as well numbness in the 3 middle fingers in the right hand. He reported that her pain started in June of 2023 after a infusion of the medication Octevus. She reports today pain 10/10. She reports that because of her pain she can not sleep normally barely able to do activities of daily living she is able to take care of herself but she can not function normally. She is on permanent disability. She is suffering from multiple sclerosis. Heat and cold applications aggravate her pain. In terms of tissue damage he reports her pain as pulsing, throbbing, pounding, stabbing, lancinating, sharp, cutting, lacerating, tugging, pulling, wrenching, hot burning, scalding, searing, tingling, stinging, dull, sore, hurting, aching, heavy, tiring, exhausting, spreading, radiating, piercing, tight, squeezing, tearing, cold sensation. She is trying a leave to help her pain and she was prescribed gabapentin 300 mg t.i.d. to help her pain none of that was improving her pain significantly. She had physical therapy for her hand about 6 months ago and she reported no improvement. Never had any images of her painful conditions and she never had any injections to help her pain. Her past medical history significant for MS. Past surgical history significant for in and 2003, she had cholecystectomy in 2017, she had gastric sleeve in 2021 skin removal after that however she gained weight back at the pre procedure level. She is still morbidly obese. She denies smoking currently cigarettes she stopped in 2020 she denies drinking alcohol she drinks 1 cup of coffee a day and she denies recreational drugs. [facility] Medical History Steatosis, liver Liver fibrosis Pain COVID-19 vaccine series completed Numbness Smoking Vitamin A deficiency Vitamin B12 deficiency Vitamin D deficiency Vitamin B1 deficiency Abnormal EKG Multiple sclerosis GERD (gastroesophageal reflux disease) Hypertension Morbid obesity Surgical History H/O hernia repair Hx of colonoscopy (~03/31/23) History of sleeve gastrectomy Hx of cholecystectomy Hx of section Family History Mother No problems noted. Father No problems noted. Sister No problems noted. Son No problems noted. Daughter No problems noted. Social History Household Members: Children Household Members Other:: adult children Caregiver staying overnight: No Housing: Apartment Are you a primary home care liaison to a significant other at home: No Do you presently have visiting nurse or other home services: No 75 years or older and lives alone: No Alcohol intake: current Alcohol intake frequency: holidays/special occasions only Patient Tobacco Use Status: Former Tobacco user Tobacco use type: Cigarette Cigarettes Per Day: 0 (quit 07/23/2020) Years Smoked: 10 e-Cigarette/Vaping Use: Never Used Substance Use Type: Marijuana service: No Current occupational status: disabled Review of Systems Const All systems reviewed & are unremarkable except as noted in HPI and below ENT Reports Normal hearing present Neuro Reports Normal hearing present, Denies Abnormal speech present, Denies confusion and Denies Sensory deficit (Neuro) Psych Denies confusion Physical Exam Vital Signs: Last Vital Signs Pulse 112 H 10/11/24 15:39 Resp 18 10/11/24 15:39 BP 169/77 H 10/11/24 15:39 Pulse Ox 100 10/11/24 15:39 Oxygen Delivery Method Room Air 10/11/24 15:39 Const General: no acute distress; No confusion Nutritional Appearance: obese morbidly obese Orientation/consciousness: patient oriented x3 and No confusion Eyes General: appearance normal, both eyes and all related structures Pupils: Equal, round and reactive pupils present EOM: EOMs intact bilaterally Neck Other: Flexing had backwards aggravate her pain. Chest Chest palpation & inspection: normal inspection of the chest Resp Effort & Inspection: normal respiratory effort, able to speak in complete sentences, normal respiratory pattern, no audible wheezes and no cough Cardio Jugular venous distension: no JVD GI Inspection: Yes normal to inspection Back/Spine/Pelvis Other: Flexing backwards alleviate her pain, however flexing forward does not aggravate her pain much either. Neuro General: patient oriented x3, gait normal and No confusion Cranial nerves: Yes CN's II-XII intact bilaterally, Yes Equal, round and reactive pupils present, Yes Normal hearing present and Yes Ability to bilaterally elevate shoulders present Speech: No Abnormal speech present Gait exam (Neuro): Normal gait present Motor exam (neuro): 5/5 motor strength present throughout Sensory Exam: No Sensory deficit (Neuro) Extrem Other: Edematous right upper extremity in the area of forearm wrist and hand. General: No pedal edema Psych Speech and movement: Normal speech and movement present Affect: normal affect Attitude: cooperative Thought process: Normal thought process present Thought content: Normal thought content present Insight: Good insight present (Psych) Judgement: Good judgement present (Psych) Assessment & Plan Assessment & Plan (1) Carpal tunnel syndrome of right wrist: Code(s): G56.01 - Carpal tunnel syndrome, right upper limb Category: Medical (2) Spondylosis of cervical joint without myelopathy: Code(s): M47.812 - Spondylosis without myelopathy or radiculopathy, cervical region Category: Medical (3) Spondylosis of lumbar region without myelopathy or radiculopathy: Code(s): M47.816 - Spondylosis without myelopathy or radiculopathy, lumbar region Category: Medical (4) Spondylosis of lumbar region without myelopathy or radiculopathy: Code(s): M47.816 - Spondylosis without myelopathy or radiculopathy, lumbar region Category: Medical Plan I will send this patient for physical therapy to treat her spondylosis of the lumbar spine and cervical spine. I also will send her for x-ray of the right wrist, x-ray of the cervical spine, x-ray of the lumbar spine. I will send her EMG with my suspicion of the carpal tunnel syndrome on the right. I will also schedule her for appointment with me in 6 weeks. I will start her today on tizanidine. There is a warning sign on tizanidine with liver conditions however her LFTs are normal. I will in the middle of therapy with tizanidine verify that her LFTs are within normal limits. Orders: Orders XR lumbar spine 4V min Today M47.816 - Spondylosis without myelopathy or radiculopathy, lumbar region PT Evaluation and Treatment Today M47.812 - Spondylosis without myelopathy or radiculopathy, cervical region, M47.816 - Spondylosis without myelopathy or radiculopathy, lumbar region XR cervical spine 5V Today M47.812 - Spondylosis without myelopathy or radiculopathy, cervical region XR wrist RT min 3V Today G56.01 - Carpal tunnel syndrome, right upper limb NE electromyogram (EMG) Today G56.01 - Carpal tunnel syndrome, right upper limb NE nerve conduction velocity Today G56.01 - Carpal tunnel syndrome, right upper limb Medications: New tizanidine 2 mg PO TID PRN 90 tabs 8RF muscle spasticity 30 days Coding Level of Care Code New Pt Level 3 (45161) Diagnoses Carpal tunnel syndrome of right wrist G56.01 Spondylosis of cervical joint without myelopathy M47.812 Spondylosis of lumbar region without myelopathy or radiculopathy M47.816
[2024-10-11 15:39] VITALS: BP 169/77; PULSE 112; RESP 18; O2SAT 100
--- OUTSIDE RECORDS SUMMARY | 2024-10-11 18:11 | XMS_ITS | Clinical Summary ---
Author Organization [facility] Address [address] [place] [address] Care Team Providers Care Install Technician Name Role Phone Yun River MD Primary Care Prov ider Allergies No known active allergies Medications Medication Sig Dispensed Refills Start Date End Date Status Cholecalciferol (D3-1000) 25 MCG (1000 UT) capsule TAKE 1 CAPSULE BY MOUTH DAILY FOR 30 DAYS 0 06/05/2022 Active thiamine (VITAMIN B-1) 100 MG tablet Take 1 tablet (100 mg total) by mouth daily. 0 06/06/2023 Active Ocrelizumab (OCREVUS IV) Inject into the vein. 0 Active ergocalciferol (VITAMIN D2) capsule 13335 units Take 1 capsule (50,000 Units total) by mouth once a week. 12 capsule 0 12/23/2023 Active modafinil (PROVIGIL) 100 MG tablet Take 1 tablet (100 mg total) by mouth daily. 30 tablet 0 02/16/2024 Active Active Problems Problem Noted Date Diagnosed Date Multiple sclerosis 05/11/2023 Social History Tobacco Use Types Packs/Day Years Used Date Smoking Tobacco: Never Smokeless Tobacco: Never Tobacco Cessation:Counseling Given: Not Answered Alcohol Use Standard Drinks/Week Comments Never 0 (1 standard drink = 0.6 oz pur e alcohol) Sex and Gender Information Value Date Recorded Sex Assigned at Female 01/22/2023 12:12 PM EDT Gender Identity Not on file Sexual Orientation Not on file Job Start Date Occupation Industry Not on file Not on file Not on file Last Filed Vital Signs Vital Sign Reading Time Taken Comments Blood Pressure 142/81 02/02/2024 8:42 AM EDT Pulse 64 02/02/2024 8:42 AM EDT Temperature 36.7 C (98 F) 02/02/2024 8:42 AM EDT Respiratory Rate 18 12/17/2023 1:51 PM EDT Oxygen Saturation 97% 12/17/2023 1:51 PM EDT Inhaled Oxygen Concentration - - Weight 83.6 kg (184 lb 4.8 oz) 10/07/2023 11:35 AM EDT Height 162.6 cm (5' 4 ) 11/18/2023 10:29 AM EDT Body Mass Index 31.64 10/07/2023 11:35 AM EDT Plan of Treatment Health Maintenance Due Date Last Done Comments Hepatitis C Screening 1974 Depression Screening 1986 BMI Counseling 1992 Preventative Health Evaluation 1992 Cervical Cancer Screening (Pap Smear) 10/30/1995 Hepatitis B Vaccines (2 of 3 - 19+ 3-dose series) 01/10/2001 12/13/2000, 12/13/2000 Colon Cancer Screening (Colonoscopy) 10/30/2019 COVID-19 Vaccine (2023-2 5 season) 2023 12/23/2021, 07/18/2020, 06/17/2020 Influenza Vaccine (Season Ended) 2024 01/12/2011 DTap / Tdap / Td (2 - Td or Tdap) 07/16/2032 07/16/2022, 11/29/2000 Pneumococcal Vaccine Aged Out No long er eligible based on patient's age to complete this topic RSV Ped < 20 months Aged Out No longe r eligible based on patient's age to complete this topic Care Teams Install Technician Relationship Specialty Start Date End Date Yun River MD PCP - General Internal Medicine 02/03/23
== END 2024-10-11 15:49 | disposition home or self-care (01) ==
LOC: HO.PMC 15:23
PROVIDERS: PCP Internal Medicine; Referring Provider Internal Medicine; Visit Provider Anesthesiology
DX: G56.01 Carpal tunnel syndrome, right upper limb (principal); M47.812 Spondylosis without myelopathy or radiculopathy, cervical region; M47.816 Spondylosis without myelopathy or radiculopathy, lumbar region
CPT/HCPCS: 99203

== ENCOUNTER → 2024-10-11 15:23 | Outpatient (BNVA) | payer MEDICARE, MEDICAID, SELFPAY | PROVIDERS: PCP Internal Medicine; Referring Provider Internal Medicine; Visit Provider Anesthesiology | DX: G56.01 Carpal tunnel syndrome, right upper limb (principal); M47.812 Spondylosis without myelopathy or radiculopathy, cervical region; M47.816 Spondylosis without myelopathy or radiculopathy, lumbar region | CPT/HCPCS: 99202 ==

== ENCOUNTER 2024-10-16 11:10 | Outpatient (REF) | payer MEDICARE, MEDICAID, SELFPAY ==
--- NOTE | ~2024-10-16 | XR_ITS ---
EXAMINATION: XR CERVICAL SPINE CLINICAL INFORMATION: M47.812 - Spondylosis without myelopathy or radiculopathy, cervical region COMPARISON: None available. TECHNIQUE: AP oblique and lateral views. Atlantoaxial view. FINDINGS: Craniocervical junction is intact. Anterior marginal osteophyte formation and limbus vertebra C4-5 and C5-6. Reverse curvature apex at C4. No acute cortical disruption or gross malalignment. No lytic or blastic lesions. l XR/XR cervical spine 5V IMPRESSION: Multilevel cervical spondylosis more conspicuous at C4-5 and C5-6. Reverse curvature apex at C4. Electronically signed by: Layo Lynn MD 10/16/2024 12:40 PM EDT
--- NOTE | ~2024-10-16 | XR_ITS ---
EXAMINATION: X-ray lumbar spine CLINICAL INFORMATION: Spondylosis without myelopathy or radiculopathy, lumbar region. TECHNIQUE: AP oblique and lateral views. COMPARISON: None FINDINGS: Multilevel small marginal osteophyte formation and endplate sclerosis decreased intervertebral disc height throughout the axial skeleton. No acute cortical disruption or gross malalignment. No lytic or blastic lesions. Vascular clips in the upper abdomen. Spina bifida occulta S1. XR/XR lumbar spine 4V min IMPRESSION: Multilevel thoracolumbar spondylosis. Electronically signed by: Layo Lynn MD 10/16/2024 12:42 PM EDT
--- NOTE | ~2024-10-16 | XR_ITS ---
EXAMINATION: XR WRIST 3 OR MORE VIEWS RIGHT HISTORY: G56.01 - Carpal tunnel syndrome, right upper limb COMPARISON: There are no prior studies available for comparison. FINDINGS: Four views of the right wrist including a scaphoid view are submitted. Osseous mineralization is normal. A well-corticated osseous density adjacent to the tip of the ulnar styloid may be the result of old trauma. There is no acute fracture or dislocation. The joint spaces are preserved. The soft tissues are unremarkable. XR/XR wrist RT min 3V IMPRESSION: No acute fracture. Electronically signed by: Justin Sanderson MD 10/16/2024 12:23 PM EDT
--- OUTSIDE RECORDS SUMMARY | 2024-10-16 12:03 | XMS_ITS | Clinical Summary ---
Author Organization [facility] Address [address] [place] [address] Care Team Providers Care Coverer Name Role Phone Yun River MD Primary [...] vein. 0 Active ergocalciferol (VITAMIN D2) capsule 87642 units Take 1 capsule (50,000 Units total) [...] age to complete this topic Care Teams Coverer Relationship Specialty Start Date End Date Yun River MD PCP - General Internal Medicine 02/03/23
== END 2024-10-16 11:11 | disposition home or self-care (01) ==
LOC: HO.XRAY 11:10
PROVIDERS: PCP Internal Medicine; Visit Provider Anesthesiology
DX: M47.812 Spondylosis without myelopathy or radiculopathy, cervical region (principal); G56.01 Carpal tunnel syndrome, right upper limb; M47.816 Spondylosis without myelopathy or radiculopathy, lumbar region
CPT/HCPCS: 72050; 72110; 73110

== ENCOUNTER → 2024-10-16 11:14 | Outpatient (BNV) | payer MEDICARE, MEDICAID, SELFPAY | PROVIDERS: PCP Internal Medicine; Visit Provider Radiology Diagnostic Radiology | DX: M47.812 Spondylosis without myelopathy or radiculopathy, cervical region (principal); M47.815 Spondylosis without myelopathy or radiculopathy, thoracolumbar region; G56.01 Carpal tunnel syndrome, right upper limb | CPT/HCPCS: 73110 ==

== ENCOUNTER 2024-11-22 08:00 | Outpatient (RCR) | payer MEDICARE, MEDICAID, SELFPAY ==
--- NOTE | 2024-10-27 08:11 | MHC.PT.EP ---
[facility] [place] Office [place] Office [place] Office [address] Yvette Balderas [address] [phone] F: [phone] F: [phone] F: [phone] F: [phone] Physical Therapy Plan of Care Date of Evaluation: 10/27/24 Date of Surgery: n/a Diagnosis: spondylosis lumbar region w/o myelopathy/radiculopathy Assessment: Patient is a 48 year old female presenting to PT with complaints of pain in her low back. Pt reports onset of pain began 1.5 years ago due to shortly after infusion for MS. She presents today with impairments in pain, lumbar ROM, core strength, hip strength, posture. Pt's current occupation is disabled, with baseline physical activities including sleeping, ADLs, bending, household duties. Pt expresses terminal superintendent goal of reducing pain, and is motivated to work towards this in PT. Clinical presentation today is most consistent with signs and sx associated with low back pain and pt will benefit from skilled PT 2 week x 4 weeks to address the following problems and impairments noted upon evaluation: pain, lumbar ROM, core strength, hip strength, posture. These problems limit the patient with the following functional activities: sleeping, ADLs, bending, household duties. The prescribed treatment plan of care is medically necessary. Co-morbidities of MS were identified and taken into considerations of plan of care. Pt was educated on HEP, role of PT, prognosis, POC. Frequency and Duration: The patient will be seen 2 x week x 4 weeks Short Term Goals: Pt will demonstrate ability to move through available lumbar ROM with min to no pain in 2 weeks. Pt will demonstrate improved hip MMT strength by 1/3 grade in 2 weeks. Electrophysiology Scientist Goals: Pt will demonstrate improved Franci score by 10% in 4 weeks for improved functional mobility. Pt will demonstrate ability to sleep through the night with min to no pain in 4 weeks for improved QOL. Pt will demonstrate ability to complete ADLs with min to no pain in 4 weeks for return to PLOF. Treatment Plan: Modalities to reduce pain, spasms and effusion. Manual therapy to restore motion and function. Therapeutic exercise to improve strength and flexibility. Neuromuscular re-education for posture and balance. Therapeutic activities to return to functional activities of daily living. Electronically signed by: Corrie Nichole, PT, DPT, ATC Please sign and return to therapist. Thank you for your referral.
--- NOTE | 2025-01-02 07:31 | MHC.PT.DC ---
[facility] [place] Office [place] Office [place] Office [address] Balderas [address] [phone] F: [phone] F: [phone] F: [phone] F: [phone] Physical Therapy Discharge Report Diagnosis: spondylosis lumbar region w/o myelopathy/radiculopathy Date of Surgery: n/a Date of Evaluation: 10/27/24 Date of Discharge: 01/02/25 Treatments to Date: 7 Cancellations to Date: 2 No Shows to Date: 0 Discharge Status: Discharge Summary: Pt has not attended skilled PT in >30 days so therefore to be d/c. Electronically signed by: Corrie Nichole, PT, DPT, ATC Please sign and return to therapist. Thank you for your referral.
== END 2025-01-02 07:31 | disposition home or self-care (01) ==
LOC: HO.PTCHIC 08:00
PROVIDERS: PCP Internal Medicine; Visit Provider Anesthesiology
DX: M47.816 Spondylosis without myelopathy or radiculopathy, lumbar region (principal); M47.812 Spondylosis without myelopathy or radiculopathy, cervical region
CPT/HCPCS: 97110; 97162

== ENCOUNTER 2024-12-06 08:19 | Outpatient (AMB) | payer MEDICARE, MEDICAID, SELFPAY ==
--- NOTE | 2024-12-06 08:21 | MHC.OFFVIS ---
Vital Signs 12/06/24 08:24 Height 5 ft 5 in Weight 213 lb BMI 35.4 BP 150/81 H Blood Pressure Location Lt brachial Position Sitting Respiration 18 Pulse 83 Pulse Source Pulse Oximeter Pulse Oximetry (%) 100 Oxygen Delivery Method Room Air Intake Visit Reasons: 6 Week Follow Up Supervisor Screen Making Required: No Allergies tizanidine Allergy (Unknown, Verified 12/06/24 08:25) Swelling HPI Comments Details: Conchita is very pleasant 48 years old female who presents in my office with complains on severe pain on the lower back more to the right as well as severe pain in the right hand and right forearm. Reports as well numbness in the 3 middle fingers in the right hand. She was diagnose with spondylosis of cervical and lumbar spine, she went for physical therapy. She completed physical therapy outside of our organization. Unfortunately would not have a report however she stated that physical therapy greatly improved her pain in the lower back. She also went for EMG and was diagnose with moderate to severe carpal tunnel syndrome on the right. She reports now that she knows the source of her pain she is very eager to go for carpal tunnel surgery. I will schedule her for appointment with Dr. Anitra Ken. Next appointment as needed. [facility] Medical History Steatosis, liver Liver fibrosis Pain COVID-19 vaccine series completed Numbness Smoking Vitamin A deficiency Vitamin B12 deficiency Vitamin D deficiency Vitamin B1 deficiency Abnormal EKG Multiple sclerosis GERD (gastroesophageal reflux disease) Hypertension Morbid obesity Surgical History H/O hernia repair Hx of colonoscopy (~03/31/23) History of sleeve gastrectomy Hx of cholecystectomy Hx of section Family History Mother No problems noted. Father No problems noted. Sister No problems noted. Son No problems noted. Daughter No problems noted. Social History Household Members: Children Household Members Other:: adult children Caregiver staying overnight: No Housing: Apartment Are you a primary child adolescent care to a significant other at home: No Do you presently have visiting nurse or other home services: No 75 years or older and lives alone: No Alcohol intake: current Alcohol intake frequency: holidays/special occasions only Patient Tobacco Use Status: Former Tobacco user Tobacco use type: Cigarette Cigarettes Per Day: 0 (quit 07/23/2020) Years Smoked: 10 e-Cigarette/Vaping Use: Never Used Substance Use Type: Marijuana service: No Current occupational status: disabled Review of Systems Const All systems reviewed & are unremarkable except as noted in HPI and below ENT Reports Normal hearing present Neuro Reports Normal hearing present, Denies Abnormal speech present, Denies confusion and Denies Sensory deficit (Neuro) Psych Denies confusion Physical Exam Vital Signs: Last Vital Signs Pulse 83 12/06/24 08:24 Resp 18 12/06/24 08:24 BP 150/81 H 12/06/24 08:24 Pulse Ox 100 12/06/24 08:24 Oxygen Delivery Method Room Air 12/06/24 08:24 BMI result Body Mass Index 35.4 Const General: no acute distress; No confusion Nutritional Appearance: obese morbidly obese Orientation/consciousness: patient oriented x3 and No confusion Eyes General: appearance normal, both eyes and all related structures Pupils: Equal, round and reactive pupils present EOM: EOMs intact bilaterally Neck Other: Flexing had backwards aggravate her pain. Chest Chest palpation & inspection: normal inspection of the chest Resp Effort & Inspection: normal respiratory effort, able to speak in complete sentences, normal respiratory pattern, no audible wheezes and no cough Cardio Jugular venous distension: no JVD GI Inspection: Yes normal to inspection Back/Spine/Pelvis Other: Flexing backwards alleviate her pain, however flexing forward does not aggravate her pain much either. Neuro General: patient oriented x3, gait normal and No confusion Cranial nerves: Yes CN's II-XII intact bilaterally, Yes Equal, round and reactive pupils present, Yes Normal hearing present and Yes Ability to bilaterally elevate shoulders present Speech: No Abnormal speech present Gait exam (Neuro): Normal gait present Motor exam (neuro): 5/5 motor strength present throughout Sensory Exam: No Sensory deficit (Neuro) Extrem Other: Edematous right upper extremity in the area of forearm wrist and hand. General: No pedal edema Psych Speech and movement: Normal speech and movement present Affect: normal affect Attitude: cooperative Thought process: Normal thought process present Thought content: Normal thought content present Insight: Good insight present (Psych) Judgement: Good judgement present (Psych) Assessment & Plan Assessment & Plan (1) Carpal tunnel syndrome of right wrist: Code(s): G56.01 - Carpal tunnel syndrome, right upper limb Category: Medical (2) Spondylosis of cervical joint without myelopathy: Code(s): M47.812 - Spondylosis without myelopathy or radiculopathy, cervical region Category: Medical (3) Spondylosis of lumbar region without myelopathy or radiculopathy: Code(s): M47.816 - Spondylosis without myelopathy or radiculopathy, lumbar region Category: Medical (4) Spondylosis of lumbar region without myelopathy or radiculopathy: Code(s): M47.816 - Spondylosis without myelopathy or radiculopathy, lumbar region Category: Medical Plan She completed physical therapy and reports very good results of physical therapy. She completed 8 sessions of physical therapy in 4 weeks. She continues home exercise program. She reports that she does it in the gym in conjunction with low-impact aerobic exercise. She was diagnose with right carpal tunnel syndrome by EMG elsewhere. Unfortunately we do not have the report of that EMG however patient reported that she was diagnose with moderate to severe carpal tunnel syndrome on the right. I will refer her to Dr. Ken, hand surgeon. Next appointment as needed. Orders: Referrals Orthopedics Referral G56.01 - Carpal tunnel syndrome, right upper limb Coding Level of Care Code Est Pt Level 3 (22247) Diagnoses Carpal tunnel syndrome of right wrist G56.01 Spondylosis of cervical joint without myelopathy M47.812 Spondylosis of lumbar region without myelopathy or radiculopathy M47.816
[2024-12-06 08:24] VITALS: BP 150/81; PULSE 83; RESP 18; O2SAT 100; BMI 35.4
== END 2024-12-06 08:38 | disposition home or self-care (01) ==
LOC: HO.PMC 08:19
PROVIDERS: PCP Internal Medicine; Visit Provider Anesthesiology
DX: G56.01 Carpal tunnel syndrome, right upper limb (principal); M47.812 Spondylosis without myelopathy or radiculopathy, cervical region; M47.816 Spondylosis without myelopathy or radiculopathy, lumbar region
CPT/HCPCS: 99213

== ENCOUNTER → 2024-12-06 08:19 | Outpatient (BNVA) | payer MEDICARE, MEDICAID, SELFPAY | PROVIDERS: PCP Internal Medicine; Visit Provider Anesthesiology | DX: G56.01 Carpal tunnel syndrome, right upper limb (principal); M47.812 Spondylosis without myelopathy or radiculopathy, cervical region; M47.816 Spondylosis without myelopathy or radiculopathy, lumbar region | CPT/HCPCS: 99212 ==